=== PATIENT | male | born 1950 | race Caucasian/White ===

== ENCOUNTER 2021-03-23 05:45 | Observation (INO) | payer OTHER ==
--- NOTE | 2021-03-17 11:45 | RAD REPORT ---
EXAM DESCRIPTION: Vladimir Palencia (2 Views)03/17/2021 11:38 am CLINICAL HISTORY: Preop for knee surgery COMPARISON: None FINDINGS: The lungs appear clear of acute infiltrate. The heart is normal size IMPRESSION: No acute abnormalities displayed
[2021-03-17 11:56] LABS: Absolute Lymphocytes (CBC) 1.4 K/uL (0.7-4.9); Basophils % 0.4 % (0-1.3); Hematocrit 47.5 % (39.6-49.0); Lymphocytes % 19.5 % (15.3-44.8); MPV 9.2 fL (7.6-11.3); RBC Red Blood Cell Count 5.09 M/uL (4.33-5.43)
[2021-03-17 12:02] LABS: Protime INR 0.95
[2021-03-17 12:20] LABS: Potassium 4.7 mmol/L (3.5-5.1)
[2021-03-23] MEDS ORDERED: NS 0.9% VIAL 20 ML ONE (06:30)
[2021-03-23] MEDS ORDERED: MIDAZOLAM HCL 2 MG/2 ML INJ ONE (06:31)
[2021-03-23] MEDS ORDERED: LIDOCAINE 1% MPF 5 ML VIAL ONE (06:31)
[2021-03-23] MEDS ORDERED: FENTANYL CITR 100 MCG/2 ML ONE ×2 (06:31→08:34)
[2021-03-23] MEDS ORDERED: BUPIVACAINE 0.25% PF 30 ML VIAL ONE (06:32)
[2021-03-23] MEDS ORDERED: Ringers Lactate 0 ML IV ONE (06:35)
[2021-03-23] MEDS ORDERED: Ringers Lactate 1,000 ML IV ONE ×2 (06:36→08:58)
[2021-03-23] MEDS ORDERED: CEFAZOLIN 2 GM IN 0.9% NACL 2 GM/100 ML BAG ONE (06:42)
[2021-03-23] MEDS ORDERED: GABAPENTIN 100 MG CAP ONE (07:03)
[2021-03-23] MEDS ORDERED: CELECOXIB 100 MG CAPSULE ONE (07:03)
[2021-03-23] MEDS ORDERED: Oxycodone HCl/Acetaminophen 1 TAB TAB ONE (07:04)
[2021-03-23] MEDS ORDERED: ACETAMINOPHEN 500 MG TAB ONE (07:04)
[2021-03-23] MEDS ORDERED: propofoL 200 MG/20 ML VIAL IV ONE (07:58)
[2021-03-23] MEDS ORDERED: LIDOCAINE 2% MPF 5 ML VIAL ONE (07:58)
[2021-03-23] MEDS ORDERED: TRANEXAMIC ACID 1,000 MG in NA CHLORIDE 0.9% 50 ML IV ONE (08:00)
[2021-03-23] MEDS: BUPIVACAINE 0.25% PF 30 ML VIAL ONE ×2 (08:07→10:05)
[2021-03-23] MEDS ORDERED: EPHEDRINE SULF 50 MG/ML VIAL ONE (08:17)
[2021-03-23] MEDS ORDERED: GLYCOPYRROLATE 0.2 MG/ML SYR ONE ×2 (08:38→08:40)
[2021-03-23] MEDS ORDERED: KETAMINE HCL 500 MG/5 ML VIAL ONE (08:44)
[2021-03-23] MEDS ORDERED: KETOROLAC 30 MG/ML INJ ONE (10:17)
[2021-03-23] MEDS ORDERED: DOCUSATE NA 100 MG CAP PO PRN (10:53)
[2021-03-23] MEDS ORDERED: ONDANSETRON 4 MG/2 ML VIAL IV PRN (10:53)
[2021-03-23] MEDS ORDERED: MORPHINE 2 MG/ML SYR IV PRN (10:53)
--- NOTE | 2021-03-23 10:53 | P.BOP ---
Preoperative diagnosis: right knee osteoarthritis Postoperative diagnosis: same Primary procedure: right total knee arthroplasty Clark Driver: NONE,NONE Estimated blood loss: 30 cc Specimen: right knee bone remnants Findings: see dictation Anesthesia: General Complications: None Drain(s): Urinary catheter (removed at end of case) Implants: Biomet Cesar Persona 11 CR femur, H tibia, 35 patella, 10 MC poly Fluids & blood products: per anesthesia record; TT: 102 mins @ 300 mmHg Transferred to: Recovery Room Condition: Good
[2021-03-23] MEDS ORDERED: TRAMADOL HCL 50 MG TAB PO PRN (10:58)
--- NOTE | 2021-03-23 11:42 | RAD REPORT ---
EXAM DESCRIPTION: RAD - Knee Right 2 View - 03/23/2021 11:28 am CLINICAL HISTORY: Post Op COMPARISON: Knee Right 2 View dated 09/09/2020 FINDINGS: Status post right total knee arthroplasty. No evidence immediate hardware complications. E xpected gas within the joint. No acute fractures. IMPRESSION: Status post right total knee arthroplasty without evidence of immediate hardware complic ations. No acute fracture.
[2021-03-23 15:07] VITALS: O2SAT 93; BMI 29.8
[2021-03-23] MEDS: CEFAZOLIN 2 GM in NA CHLORIDE 0.9% 100 ML IVPB SCH (17:32)
[2021-03-23] MEDS: carvediloL 12.5 MG TAB PO SCH (20:43)
[2021-03-23] MEDS ORDERED: ATORVASTATIN 10 MG TAB PO SCH (21:00)
[2021-03-23] MEDS ORDERED: FENOFIBRATE 160 MG TAB PO SCH (21:00)
--- NOTE | 2021-03-23 21:03 | P.OP ---
Preoperative diagnosis: right knee osteoarthritis Postoperative diagnosis: same Primary procedure: right total knee arthroplasty Anesthesia: general LMA Estimated blood loss: 30 cc Specimen: right knee bone remnants Findings: see dictation Operative Technique: Indication For Procedure: Carlyle is a 70 year-old male presenting to my clinic with signs, symptoms and x-ray findings consistent with a severe right knee osteoarthritis. I discussed with the patient at length risks and benefits associated with operative and nonoperative treatment. He had failed conservative treatment measures and had significant difficulties with ADLs secondary to his pain. We discussed operative treatment and elected to proceed with right total knee arthroplasty. He expressed understanding and elected to proceed with operative treatment. Description Of Procedure: After informed consent was obtained, the patient was identified in the preoperative holding area. The right lower extremity was marked. The patient was then taken to the PACU where he underwent a right lower extremity adductor canal block performed by Anesthesia. He was then taken to the operating room, transferred to the operating table in supine fashion, and placed under general anesthesia. His right lower extremity was then prepped and draped in usual sterile fashion. A time-out was initiated. The correct patient and procedure were confirmed and identified. The patient did receive his preoperative prophylactic antibiotics. The right lower extremity was then exsanguinated and tourniquet was inflated to 300 mmHg. Approximately 15 cm longitudinal incision was made centered over the anterior aspect of the right knee. Dissection was then taken to the extensor mechanism and a medial parapatellar arthrotomy was performed. The patella was everted and dislocated laterally and the knee was flexed in the fat pad. Medial lateral meniscus and ACL were all excised exposing the distal femur. Excess hypertrophic synovium was also excised within the suprapatellar pouch. The patient had an MRI of his right knee preoperatively for surgical planning and creation of cutting blocks. The cutting block was then placed over the distal femur and pins were then placed. The distal femoral cutting block was then placed over the pins. Knee joint was then used to ensure proper depth cut and the distal femur was then cut. The chamfer cutting guide was then placed over the distal end of the femur. Anterior, posterior cuts as well as anterior and posterior chamfer cuts were then made again confirming proper depth of the cut using an Tai wing. Excess bone remnants were then sent to pathology for further evaluation. Next, attention was taken to the proximal tibia. A tibial jig and tibial cutting block was then placed on proximal aspect of the right tibia and locked into position. Pins were then placed and alignment guide was then used to confirm proper alignment of the cut and then coronal and sagittal planes. Once this was confirmed, the cutting jig was placed over the pins and the proximal tibia was cut. Sizing trays were then selected and size 10 mm spacer was used and there was good overall balance in flexion and extension. Next, the trial implants were then placed using the size 11 standard CR femur and a size H tibia with an 10 mm poly. There was overall good range of motion and good stability trial implants were then removed. The wound was then irrigated thoroughly with normal saline and the knee was then injected with 30 cc of 0.25% Marcaine both in the posterior capsule and medial and lateral gutters as well as quadriceps tendon and periosteum. The tibia was then punched. The femur was drilled. The cement was then prepared on the back table. Cement was then placed first on the tibial surface followed by size H tibia. Excess cement was removed with [place] elevators. Size 11 standard CR femur was then placed on the distal femur after cement was placed on the distal femur. Excess cement was then removed and a size 10 mm trial poly was then placed. The knee was held in extension as the cement hardened. Undersurface of the patella was prepared debriding osteophytes using rongeurs as well as osteophytes had been debrided off the proximal tibia with rongeurs and osteotomes to aid with the medial tightness. Cement was placed on the undersurface of the patella after it was cut and a size 35 patella was placed. Once the cement was hardened, the knee was ranged, there was good overall stability both in flexion, extension and as well as stability with varus and valgus stresses. Trial poly was then removed and a size 10 mm MC poly was then placed and locked into position. The knee was then ranged again. There was good overall range of motion both for flexion and extension with good stability. The wound was then irrigated again thoroughly with normal saline using pulse lavage. Tourniquet was let down. Hemostasis was achieved using B ovie electrocautery. Extensor mechanism was then approximated using a #1 Vicryl bothin interrupted and running fashion. The fascia was then approximated using 0 Vicryl. Subcutaneous tissue was approximated with a 2-0 Vicryl. Skin was approximated using eusebia. Sterile dressings were applied. The patient was awakened and transferred back in stable condition Complications: None Drain(s): Urinary catheter (removed at end of case) Implants: Bi[employer] Cesar Persona 11 CR femur, H tibia, 10 MC poly, 35 patella Fluids & blood products: per anesthesia record; TT: 102 mins @ 300 mmHg Transferred to: Recovery Room Condition: Good
[2021-03-23] MEDS: HYDROCODONE/APAP 7.5/325 MG TAB PO PRN (22:11)
[2021-03-24] MEDS: CEFAZOLIN 2 GM in NA CHLORIDE 0.9% 100 ML IVPB SCH ×2 (00:36→08:58)
[2021-03-24] MEDS ORDERED: ENOXAPARIN 30 MG/0.3 ML SQ SCH (06:00)
[2021-03-24 06:15] LABS: Absolute Lymphocytes (CBC) 0.8 K/uL (0.7-4.9); Basophils % 0.1 % (0-1.3); Hematocrit 38.1 % (39.6-49.0); Lymphocytes % 4.7 % (15.3-44.8); MPV 9.6 fL (7.6-11.3); RBC Red Blood Cell Count 4.07 M/uL (4.33-5.43)
[2021-03-24 06:40] LABS: Potassium 4.4 mmol/L (3.5-5.1)
[2021-03-24 08:10] LABS: Blood Morphology Comment NOT SEEN (NOT SEEN); Platelet Estimate ADEQ
[2021-03-24] MEDS: carvediloL 12.5 MG TAB PO SCH (08:58)
[2021-03-24] MEDS ORDERED: CELECOXIB 100 MG CAPSULE PO SCH (09:00)
[2021-03-24] MEDS ORDERED: VALSARTAN 160 MG TAB PO SCH (09:00)
[2021-03-24] MEDS ORDERED: allopurinoL 300 MG TAB PO SCH (09:00)
[2021-03-24 09:37] VITALS: TEMP 98.5
[2021-03-24] MEDS: HYDROCODONE/APAP 7.5/325 MG TAB PO PRN (10:45)
--- NOTE | 2021-03-24 11:34 | P.DS ---
Admission Date: 03/23/21 Discharge Date: 03/24/21 Disposition: DC HOME/HOME HEALTH CARE Discharge Condition: GOOD Reason for Admission: R TKA Consultations: none Procedures: R TKA on 03/23/2021 Brief History of Present Illness: Carlyle is a 70-year-old male who underwent right total knee arthroplasty on March 23, 2021. He underwent the procedure without complication and was admitted to the floor for pain control and physical therapy. Hospital Course: Carlyle is a 70-year-old male who underwent right total knee arthroplasty on March 23, 2021. He underwent the procedure without complication and was admitted to the floor for pain control and physical therapy. He mobilized well with physical therapy and was discharged on March 24 in stable condition. He will begin Xarelto on March 25 for DVT prophylaxis. He will follow up in 2 weeks for wound check and staple removal. Vital Signs/Physical Exam: Temp Pulse Resp BP Pulse Ox 98.5 F 89 18 121/66 94 03/24/21 08:00 03/24/21 08:58 03/24/21 10:45 03/24/21 08:58 03/24/21 10:45 Laboratory Data at Discharge: WBC 17.70 K/uL (4.3-10.9) H D 03/24/21 05:48 Hgb 13.1 g/dL (13.6-17.9) L 03/24/21 05:48 Hct 38.1 % (39.6-49.0) L 03/24/21 05:48 Plt Count 145 K/uL (152-406) L 03/24/21 05:48 PT 10.9 SECONDS (9.5-12.5) 03/17/21 11:28 INR 0.95 03/17/21 11:28 APTT 30.0 SECONDS (24.3-36.9) 03/17/21 11:28 Sodium 141 mmol/L (136-145) 03/24/21 05:48 Potassium 4.4 mmol/L (3.5-5.1) 03/24/21 05:48 BUN 23 mg/dL (7-18) H 03/24/21 05:48 Creatinine 1.26 mg/dL (0.55-1.3) 03/24/21 05:48 Glucose 133 mg/dL (74-106) H 03/24/21 05:48 Home Medications: Allopurinol 300 mg PO DAILY 03/17/21 Atorvastatin Calcium [Lipitor] 10 mg PO BEDTIME 03/17/21 Carvedilol [Coreg] 12.5 mg PO BID 03/17/21 Fenofibrate [Tricor] 160 mg PO BEDTIME 03/17/21 Valsartan [Diovan] 160 mg PO DAILY 03/17/21 Physician Discharge Instructions: Keep dressing c/d/i; begin Xarelto on 03/25/2021 in the AM Diet: Regular Activity: Weight bearing as tolerated Followup: Anders Otero MD [ACTIVE - CAN ADMIT] - 1-2 Weeks
[2021-03-24 17:03] VITALS: BP 107/64
== END 2021-03-24 13:55 | disposition home health service (06) ==
LOC: OR 05:45 → 2ND 14:02
PROVIDERS: ADMIT Orthopaedic Surgery Sports Medicine; ATTEND Orthopaedic Surgery Sports Medicine
PROC: 0SRC069 Replacement of Right Knee Joint with Oxidized Zirconium on Polyethylene Synthetic Substitute, Cemented, Open Approach (ICD-10-PCS; principal; 2021-03-23 07:30)
DX: M17.11 Unilateral primary osteoarthritis, right knee (principal); I10 Essential (primary) hypertension; M10.9 Gout, unspecified; E78.00 Pure hypercholesterolemia, unspecified; Z20.822 Contact with and (suspected) exposure to COVID-19
CPT/HCPCS: 27447; 85025 ×2; 80048 ×2; 36415 ×2; 85610; 88304; 88311; 85730; 85018; 85014; 71046; 73560; 97116 ×2; 97139; 97161; 97530; 94010; U0003; J2704; J1650; J2250; J3010 ×2; J0690 ×2; J7120 ×2; J2405; G0379; G0378 ×2

== ENCOUNTER 2023-07-22 11:22 | Inpatient (IN) | payer OTHER ==
[2023-07-22] MEDS ORDERED: NA CHLORIDE 0.9% 1,000 ML ONE ×3 (11:47→18:42)
[2023-07-22 12:03] LABS: Absolute Lymphocytes (CBC) 0.5 K/uL (0.7-4.9); Hematocrit 36.8 % (39.6-49.0); MCV 95.2 fL (80-100); MPV 9.5 fL (7.6-11.3); Platelets 122 thou/uL (152-406); RBC Red Blood Cell Count 3.87 M/uL (4.33-5.43)
[2023-07-22] MEDS ORDERED: ALBUMIN HUMAN 25% 50 ML IV ONE (12:11)
[2023-07-22] MEDS ORDERED: MIDODRINE HCL 5 MG TABLET ONE (12:11)
--- NOTE | 2023-07-22 12:22 | RAD REPORT ---
EXAM DESCRIPTION: RAD - Chest Single View - 07/22/2023 12:01 pm CLINICAL HISTORY: hypotension;Chest pain COMPARISON: Chest Pa And Lat (2 Views) dated 10/30/2022; Chest Pa And Lat (2 Views) dated 03/17/2021 FINDINGS: Lines: None. Lungs: Linear opacity at the right lung base which is new from prior. Pleural: No significant pleural effusions or pneumothorax. Cardiac: The heart size is within normal limits. Mediastinum: Within normal limits. Bones: No acute fractures. Other: None IMPRESSION: New linear opacity at the right lung base could be secondary to atelectasis, scarring, a nd/or an acute airspace process. The left lung is clear.
[2023-07-22 12:29] LABS: Albumin 2.6 g/dL (3.4-5.0); Bilirubin Direct 0.8 mg/dL (0-0.2); Bilirubin Indirect, Calculated 0.5 mg/dL (0.2-0.8); Bilirubin Total 1.3 mg/dL (0.2-1.0); Magnesium 2.5 mg/dL (1.6-2.4); Potassium 3.5 mEq/L (3.5-5.1); Protein, Total 6.1 g/dL (6.4-8.2); Troponin High Sensitivity 7.6 pg/mL (<58.9)
[2023-07-22 12:33] LABS: SARS-CoV-2 Antigen Rapid Res Negative (Negative)
[2023-07-22] MEDS ORDERED: ONDANSETRON 4 MG/2 ML VIAL ONE (13:43)
--- NOTE | 2023-07-22 14:17 | RAD REPORT ---
EXAM DESCRIPTION: CTChest Abd Pelvis Wo Con - 07/22/2023 1:17 pm CLINICAL HISTORY: elevated LFTs, BERNIE, hypotension COMPARISON: Abdomen Pelvis W Contrast dated 09/26/2022 TECHNIQUE: CT of the chest, abdomen, and pelvis was performed. All CT scans are performed using dose optimization technique as appropriate and may include automated exposure control or mA/KV adjustment according to patient size. FINDINGS: Thorax: Chest Wall: No abnormal mass Lungs: Scarring or subsegmental atelectasis in the lungs . Pleura: No effusions or pneumothorax. Rosa/Mediastinum: No lymphadenopathy. Aorta/Pulmonary Arteries: Unremarkable Heart: Normal size. Coronary artery calcifications. Abdomen/Pelvis: Liver: Hepatic steatosis. The knee is attenuation of the liver possibly due to multiple underlying li donnie lesions. . Biliary: No biliary ductal dilatation. Stomach: No significant focal abnormality. Duodenum: No significant focal abnormality. Pancreas: No significant abnormality. Spleen: Mild splenomegaly. Adrenal: No suspicious lesions. Kidney/ureter: No hydronephrosis. No renal calculi. Retroperitoneum: Low-density collection at the right internal iliac chain measuring 2.5 cm may be fro m prior prostatectomy and lymph node dissection. Vascular: No aneurysm. Bowel: No significant focal abnormality. Peritoneum: No ascites or free air. Bladder: Grossly unremarkable. Reproductive: No adnexal masses. Bones: No acute fracture. Multilevel degenerative changes are present in the spine. Other: n/a IMPRESSION: 1. Interval development of heterogeneous attenuation of the liver likely due to numerous underlying liver metastatic lesions. Could consider repeat CT with IV contrast or hepatic protocol M RI. 2. Interval prostatectomy. Small fluid collection along the right iliac chain may be from a lymph nod e dissection.
--- NOTE | 2023-07-22 15:35 | EDPHYS ---
Physician Documentation [facility] Name: Carlyle Viveros Age: 72 yrs Sex: Male : 1950 Arrival Date: 07/22/2023 Time: 11:22 Bed [id number] Private MD: ED Physician Wesley Cary HPI: 07/22 12:09 This 72 yrs old Male presents to ER via Ambulatory with complaints of weakness, fatigue.sb4 12:11 patient states that he has been feeling poorly for about 2 weeks, has had varying sb4 symptoms- nausea, vomiting, diarrhea, decreased appetite, fatigue. he states that it has gotten to the point where he gets exhausted walking 20 feet. denies any URI symptoms, no fever, no dark stools. Historical: - Allergies: 11: No Known Allergies; aa5 - PMHx: 11:29 Hypertensive disorder; Hypercholesterolemia; aa5 14:58 Prostate cancer; mb9 - PSHx: 14:58 prostatectomy; mb9 - Immunization history:: Adult Immunizations unknown. - Social history:: Smoking status: Patient denies any tobacco usage or history of. ROS: 12:11 Eyes: Negative for injury, pain, redness, and discharge, sb4 12:11 Constitutional: Positive for fatigue, malaise, 12:11 All other systems are negative, Exam: 12:11 Head/Face: Normocephalic, atraumatic. Eyes: Extra-ocular motions intact. Periorbital sb4 areas with no swelling, redness, or edema. ENT: Mucous membranes moist. Cardiovascular: Regular rate and rhythm with a normal S1 and S2. Respiratory: Lungs have equal breath sounds bilaterally, clear to auscultation and percussion. No rales, rhonchi or wheezes noted. No increased work of breathing, no retractions or nasal flaring. Abdomen/GI: Soft, non-tender, no distension. MS/ Extremity: Pulses equal, no cyanosis. Neurovascular intact. Full, normal range of motion. Neuro: Awake and alert, GCS 15, oriented to person, place, time, and situation. Motor strength 5/5 in all extremities. Sensory grossly intact. 12:11 Constitutional: The patient appears in no acute distress, alert, awake, 12:11 Skin: Appearance: Color: pale, Vital Signs: :29 BP 82 / 59; Pulse 82; Resp 18 S; Temp 97.9(O); Pulse Ox 97% on R/A; Weight 99.79 kg aa5 (R); Height 6 ft. 1 in. (R); 11:35 BP 83 / 52; aa5 11:50 BP 75 / 62; Pulse 71; Resp 15; Pulse Ox 100% on R/A; mb9 12:05 BP 83 / 49; Pulse 69; Resp 18; Pulse Ox 97% ; mb9 12:25 BP 91 / 57; Pulse 71; Resp 14; Pulse Ox 95% on R/A; mb9 12:40 BP 91 / 53; Pulse 73; Resp 16; Pulse Ox 95% on R/A; mb9 13:00 BP 86 / 51; Pulse 71; Resp 16; Pulse Ox 100% on R/A; mb9 13:25 BP 86 / 56; Pulse 72; Resp 14 S; Pulse Ox 95% on R/A; as6 13:47 BP 94 / 56; Pulse 73; Resp 18; Pulse Ox 96% on R/A; mb9 14:18 BP 86 / 52; Pulse 69; Resp 18; Pulse Ox 95% on R/A; mb9 14:33 BP 87 / 57; Pulse 72; Resp 18; Pulse Ox 95% on R/A; mb9 15:04 BP 84 / 50; Pulse 69; Resp 16; Pulse Ox 95% ; mb9 15:52 BP 97 / 56; Pulse 70; Resp 16; Pulse Ox 95% on R/A; mb9 16:18 BP 101 / 63; Pulse 82; Resp 16; Pulse Ox 95% on R/A; mb9 18:00 BP 96 / 61; Pulse 80; Resp 18; Pulse Ox 96% ; mb9 19:15 BP 91 / 57; Pulse 69; Resp 18; Pulse Ox 95% ; la4 20:00 BP 92 / 56; Pulse 67; Resp 18; Pulse Ox 95% on R/A; la4 11:29 Body Mass Index 29.03 (99.79 kg, 185.42 cm) aa5 19:15 MAP 68 la4 20:00 MAP 68 la4 Johnson Coma Score: 20:00 Eye Response: spontaneous(4). Motor Response: obeys commands(6). Verbal Response: la4 oriented(5). Total: 15. MDM: 11:35 Patient medically screened. sb4 15:35 Data reviewed: vital signs, nurses notes, lab test result(s), EKG, radiologic studies, sb4 I have discussed the patient's presentation/case with the attending Emergency Department Physician; and as a result, I will admit patient. Consideration of Admission/Observation Patient was admitted/placed on observation. Historians other than the Patient: Spouse/Significant Other: . Care significantly affected by the following chronic conditions: Hypertension, Cancer. Counseling: I had a detailed discussion with the patient and/or guardian regarding the historical points, exam findings, and any diagnostic results supporting the discharge/admit diagnosis, lab results, radiology results, the need for further work-up and treatment in the hospital. 07/22 11:43 Order name: Basic Metabolic Panel; Complete Time: 12:41 sb4 07/22 11:43 Order name: CBC with Diff; Complete Time: 12:13 sb4 07/22 11:43 Order name: LFT's; Complete Time: 12:41 sb4 07/22 11:43 Order name: Magnesium; Complete Time: 12:41 sb4 07/22 11:43 Order name: NT PRO-BNP; Complete Time: 12:41 sb4 07/22 11:43 Order name: Troponin HS; Complete Time: 12:41 sb4 07/22 11:43 Order name: SARS RAPID; Complete Time: 12:41 sb4 07/22 11:43 Order name: Flu; Complete Time: 12:41 sb4 07/22 17:35 Order name: CBC with Automated Diff [facility] 07/22 17:35 Order name: CBC with Automated Diff [facility] 07/22 17:35 Order name: Comprehensive Metabolic Panel [facility] 07/22 17:35 Order name: Comprehensive Metabolic Panel [facility] 07/22 11:43 Order name: XRAY Chest (1 view); Complete Time: 12:24 sb4 07/22 12:42 Order name: CT Chest Abdomen Pelvis W/O Contrast; Complete Time: 14:21 sb4 07/22 11:43 Order name: EKG; Complete Time: 11:43 sb07/22 17:35 Order name: CONS Physician Consult [facility] 07/22 11:43 Order name: Cardiac monitoring; Complete Time: 12:01 sb4 07/22 11:43 Order name: EKG - Nurse/Tech; Complete Time: 12:02 sb4 07/22 11:43 Order name: IV Saline Lock; Complete Time: 12:02 sb4 07/22 11:43 Order name: Labs collected and sent; Complete Time: 12: sb4 07/22 11:43 Order name: O2 Per Protocol; Complete Time: 12: sb4 07/22 11:43 Order name: O2 Sat Monitoring; Complete Time: 12: sb4 EC:48 Rate is 78 beats/min. Rhythm is regular, Normal Sinus Rhythm. WI interval is normal at sb4 152 msec. QRS interval is normal at 90 msec. QT interval is normal at 406 msec. No Q waves. T waves are Normal. No ST changes noted. Clinical impression: Normal ECG. Interpreted by me. Reviewed by me. Administered Medications: 12:02 Drug: NS 0.9% IV 1000 ml IV at 1 bolus Per protocol; 1000 mL bolus Route: IV; Rate: 1 mb9 bolus; Site: right forearm; 16:59 Follow up: Response: No adverse reaction; IV Status: Completed infusion mb9 12:17 Drug: Albumin IVPB 25 grams 100 ml IVPB once; (Note: Albumin 25% concentration) Volume: mb9 100 ml; Route: IVPB; Site: right forearm; 16:59 Follow up: Response: No adverse reaction; IV Status: Completed infusion mb9 12:17 Drug: midodrine 10 mg PO once Route: PO; mb9 13:48 Follow up: Response: No adverse reaction mb9 13:46 Drug: Ondansetron IVP 4 mg IVP once; over 2 minutes Route: IVP; Site: left antecubital; as6 14:51 Follow up: Response: No adverse reaction mb9 14:58 Drug: NS 0.9% IV 1000 ml IV at 1 bolus Per protocol; 1000 mL bolus Route: IV; Rate: 1 mb9 bolus; Site: right forearm; 16:59 Follow up: Response: No adverse reaction; IV Status: Completed infusion mb9 Disposition: 07/23 09:53 Co-signature as Attending Physician, Wesley Cary MD I reviewed the patient's care rt provided by the Advanced Practice Provider and agree with the diagnosis and treatment plan. Disposition Summary: 07/22/23 15:34 Hospitalization Ordered Notes: Hospitalization Status: Inpatient Admission sb4 Provider: Reid, Mohammad sb4 Location: Telemetry/[facility] (Inpatient) sb4 Condition: Fair sb4 Problem: new sb4 Symptoms: are unchanged sb4 Bed/Room Type: Standard sb4 Room Assignment: [facility](07/22/23 17:56) eb Diagnosis - Hypotension, unspecified sb4 - Acute kidney failure, unspecified sb4 Forms: - Medication Reconciliation Form sb4 - SBAR form sb4 - Leadership Thank You Letter sb4 Signatures: Dispatcher [employer] EDEvelyn Louie RN RN aa5 Laury Arrington Ashby RN RN as6 Katia Israel PACody PACody sb4 Ivette Holley RN RN mb9 Wesley Cary MD MD rt Corrections: (The following items were deleted from the chart) 07/22 11:37 11:29 PMHx: Hypertensive disorder; aa5 aa5 17:56 15:34 sb4 eb
--- NOTE | 2023-07-22 15:35 | ER ---
Nurse's Notes [facility] Name: Carlyle Viveros Age: 72 yrs Sex: Male : 1950 Arrival Date: 07/22/2023 Time: : Bed IW10 Private MD: Diagnosis: Hypotension, unspecified;Acute kidney failure, unspecified Presentation: 07/22 11:29 Chief complaint: Pt's states "he just hasn't been feeling well for a couple of aa5 weeks, he's had a slight cough, indigestion, and he threw up on Sunday". Pt c/o malaise and decreased appetite. Pt's skin appears pale. 11:29 Onset of symptoms was June 2023. aa5 11: Acuity: NIMCO 2 aa5 : Method Of Arrival: Ambulatory aa5 : Coronavirus screen: fatigue. Ebola Screen: Patient denies travel to an Ebola-affected [facility] area in the 21 days before illness onset. Initial Sepsis Screen: Does the patient meet any 2 criteria? Systolic BP < 90 mmHg. Does the patient have a suspected source of infection? No. Patient's initial sepsis screen is negative. Risk Assessment: Do you want to hurt yourself or someone else? Patient reports no desire to harm self or others. Historical: - Allergies: 11: No Known Allergies; aa5 - PMHx: 11:29 Hypertensive disorder; Hypercholesterolemia; aa5 14:58 Prostate cancer; mb9 - PSHx: 14:58 prostatectomy; mb9 - Immunization history:: Adult Immunizations unknown. - Social history:: Smoking status: Patient denies any tobacco usage or history of. Screenin:00 [facility] ED Fall Risk Assessment (Adult) History of falling in the last 3 months, mb9 including since admission No falls in past 3 months (0 pts) Confusion or Disorientation No (0 pts) Intoxicated or Sedated No (0 pts) Impaired Gait No (0 pts) Mobility Assist Device Used No (0 pt) Altered Elimination No (0 pt) Score/Fall Risk Level 0 - 2 = Low Risk Oriented to surroundings, Maintained a safe environment, Educated pt \\T\\ family on fall prevention, incl call for assistance when getting out of bed. Abuse screen: Denies threats or abuse. Nutritional screening: No deficits noted. Tuberculosis screening: No symptoms or risk factors identified. Assessment: 12:00 General: Appears ill, Behavior is cooperative. Pain: Denies pain. Neuro: [place] mb9 Agitation-Sedation Scale (RASS): 0 - Alert and Calm Level of Consciousness is awake, alert, obeys commands, Oriented to person, place, time, situation, Appropriate for age Reports dizziness. Cardiovascular: Heart tones S1 S2 present Patient's skin is warm and dry. Respiratory: Reports cough that is Airway is patent Respiratory effort is even, unlabored, Respiratory pattern is regular, symmetrical, Breath sounds are clear bilaterally. GI: Abdomen is round non-distended, Bowel sounds present X 4 quads. Abd is soft and non tender X 4 quads. : No signs and/or symptoms were reported regarding the genitourinary system. EENT: No signs and/or symptoms were reported regarding the EENT system. Derm: Skin is pink, warm \\T\\ dry. Musculoskeletal: Range of motion: intact in all extremities. 13:00 Reassessment: No changes from previously documented assessment. Patient and/or family mb9 updated on plan of care and expected duration. Pain level reassessed. Patient is alert, oriented x 3, equal unlabored respirations, skin warm/dry/pink. 14:00 Reassessment: No changes from previously documented assessment. Patient and/or family mb9 updated on plan of care and expected duration. Pain level reassessed. Patient is alert, oriented x 3, equal unlabored respirations, skin warm/dry/pink. 15:00 Reassessment: No changes from previously documented assessment. Patient and/or family mb9 updated on plan of care and expected duration. Pain level reassessed. Patient is alert, oriented x 3, equal unlabored respirations, skin warm/dry/pink. 16:00 Reassessment: No changes from previously documented assessment. Patient and/or family mb9 updated on plan of care and expected duration. Pain level reassessed. Patient is alert, oriented x 3, equal unlabored respirations, skin warm/dry/pink. 17:00 Reassessment: No changes from previously documented assessment. Patient and/or family mb9 updated on plan of care and expected duration. Pain level reassessed. Patient is alert, oriented x 3, equal unlabored respirations, skin warm/dry/pink. 18:00 Reassessment: No changes from previously documented assessment. Patient and/or family mb9 updated on plan of care and expected duration. Pain level reassessed. Patient is alert, oriented x 3, equal unlabored respirations, skin warm/dry/pink. 18:08 Reassessment: Attempted to call report to admitting nurse. Told by ERP/Dr. Reid to hold mb9 off until knowing whether icu admit or medsurg/tele admit. 18:30 Reassessment: see [facility] for further charting. mb9 Vital Signs: 11:29 BP 82 / 59; Pulse 82; Resp 18 S; Temp 97.9(O); Pulse Ox 97% on R/A; Weight 99.79 kg aa5 (R); Height 6 ft. 1 in. (R); 11:35 BP 83 / 52; aa5 11:50 BP 75 / 62; Pulse 71; Resp 15; Pulse Ox 100% on R/A; mb9 12:05 BP 83 / 49; Pulse 69; Resp 18; Pulse Ox 97% ; mb9 12:25 BP 91 / 57; Pulse 71; Resp 14; Pulse Ox 95% on R/A; mb9 12:40 BP 91 / 53; Pulse 73; Resp 16; Pulse Ox 95% on R/A; mb9 13:00 BP 86 / 51; Pulse 71; Resp 16; Pulse Ox 100% on R/A; mb9 13:25 BP 86 / 56; Pulse 72; Resp 14 S; Pulse Ox 95% on R/A; as6 13:47 BP 94 / 56; Pulse 73; Resp 18; Pulse Ox 96% on R/A; mb9 14:18 BP 86 / 52; Pulse 69; Resp 18; Pulse Ox 95% on R/A; mb9 14:33 BP 87 / 57; Pulse 72; Resp 18; Pulse Ox 95% on R/A; mb9 15:04 BP 84 / 50; Pulse 69; Resp 16; Pulse Ox 95% ; mb9 15:52 BP 97 / 56; Pulse 70; Resp 16; Pulse Ox 95% on R/A; mb9 16:18 BP 101 / 63; Pulse 82; Resp 16; Pulse Ox 95% on R/A; mb9 18:00 BP 96 / 61; Pulse 80; Resp 18; Pulse Ox 96% ; mb9 19:15 BP 91 / 57; Pulse 69; Resp 18; Pulse Ox 95% ; la4 20:00 BP 92 / 56; Pulse 67; Resp 18; Pulse Ox 95% on R/A; la4 11:29 Body Mass Index 29.03 (99.79 kg, 185.42 cm) aa5 19:15 MAP 68 la4 20:00 MAP 68 la4 [place] Coma Score: 20:00 Eye Response: spontaneous(4). Motor Response: obeys commands(6). Verbal Response: la4 oriented(5). Total: 15. ED Course: 11:23 Patient arrived in ED. rg4 11:29 Arm band placed on. aa5 11:35 Katia Israel PA-C is PHCP. sb4 11:35 Wesley Cary MD is Attending Physician. sb4 11:40 Triage completed. aa5 11:59 Ivette Holley, RN is Primary Nurse. mb9 11:59 Inserted saline lock: 18 gauge in left antecubital area, using aseptic technique. mb9 12:00 Placed in gown. Bed in low position. Call light in reach. Side rails up X 1. Client mb9 placed on continuous cardiac and pulse oximetry monitoring. NIBP monitoring applied. front desk monitor on. Door closed. Noise minimized. Warm blanket given. 12:00 Inserted saline lock: 20 gauge in right forearm, using aseptic technique. mb9 12:00 EKG done, by ED staff, reviewed by Katia Israel PA-C. mb9 12:02 Basic Metabolic Panel Sent. mb9 12:02 CBC with Diff Sent. mb9 12:02 LFT's Sent. mb9 12:02 Magnesium Sent. mb9 12:02 NT PRO-BNP Sent. mb9 12:02 Troponin HS Sent. mb9 12:02 SARS RAPID Sent. mb9 12:02 Flu Sent. mb9 12:03 XRAY Chest (1 view) In Process Unspecified. EDMS 13:18 CT Chest Abdomen Pelvis W/O Contrast In Process Unspecified. EDMS 15:34 Ines Reid MD is Hospitalizing Provider. sb4 15:52 No provider procedures requiring assistance completed. Patient admitted, IV remains in mb9 place. 20:16 Provided Education on: plan of care. la4 Administered Medications: 12:02 Drug: NS 0.9% IV 1000 ml IV at 1 bolus Per protocol; 1000 mL bolus Route: IV; Rate: 1 mb9 bolus; Site: right forearm; 16:59 Follow up: Response: No adverse reaction; IV Status: Completed infusion mb9 12:17 Drug: Albumin IVPB 25 grams 100 ml IVPB once; (Note: Albumin 25% concentration) Volume: mb9 100 ml; Route: IVPB; Site: right forearm; 16:59 Follow up: Response: No adverse reaction; IV Status: Completed infusion mb9 12:17 Drug: midodrine 10 mg PO once Route: PO; mb9 13:48 Follow up: Response: No adverse reaction mb9 13:46 Drug: Ondansetron IVP 4 mg IVP once; over 2 minutes Route: IVP; Site: left antecubital; as6 14:51 Follow up: Response: No adverse reaction mb9 14:58 Drug: NS 0.9% IV 1000 ml IV at 1 bolus Per protocol; 1000 mL bolus Route: IV; Rate: 1 mb9 bolus; Site: right forearm; 16:59 Follow up: Response: No adverse reaction; IV Status: Completed infusion mb9 Medication: 12:01 VIS not applicable for this client. mb9 Outcome: 15:34 Decision to Hospitalize by Provider. sb4 20:15 Admitted to Med/surg accompanied by tech, room 212, with chart, Report called to Barber khan RN 20:15 Condition: stable 20:15 Instructed on the need for admit, Demonstrated understanding of instructions, need for admission 20:59 Patient left the ED. erin Signatures: Dispatcher [employer] EDWV Evelyn Duque RN Elisabet Haro rg4 Juwan Balderas RN RN as6 Katia Israel, PA-C PA-C Ivette Galan RN RN mb9 Yuliya Vazquez RN RN la4 Corrections: (The following items were deleted from the chart) 11:37 11:29 PMHx: Hypertensive disorder; aa5 aa5 12:25 11:59 BP 75 / 62; Pulse 71bpm; Resp 15bpm; Pulse Ox 100% RA; mb9 mb9 12:25 12:17 BP 83 / 49; Pulse 69bpm; Resp 18bpm; Pulse Ox 97%; mb9 mb9
[2023-07-22] MEDS ORDERED: ACETAMINOPHEN 500 MG TAB PO PRN (17:31)
[2023-07-22] MEDS ORDERED: MORPHINE 2 MG/ML SYR IV PRN (17:31)
--- NOTE | 2023-07-22 17:33 | P.HP ---
Certification for Inpatient Patient admitted to: Inpatient With expected LOS: >2 Midnights Patient will require the following post-hospital care: None Practitioner: I am a practitioner with admitting privileges, knowledge of patient current condition, hospital course, and medical plan of care. Services: Services provided to patient in accordance with Admission requirements found in Title 42 Section 412.3 of the Code of Federal Regulations Patient History Date of Service: 07/22/23 Reason for admission: Diminished appetite; intractable nausea vomiting; acute kidney injury History of Present Illness: Patient is a 72-year-old gentleman who came to the hospital with anorexia and generalized weakness. Patient been having some nausea and vomiting and patient came to the emergency room for further evaluation. 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 Patient was hypotensive and patient was given IV fluids in the emergency room. Patient's blood pressure improved. Patient is he will pass this. Patient's creatinine is elevated. Once creatinine improves we can do contrast study. Patient will be admitted to the hospital for further workup. Allergies No Known Allergies Allergy (Verified 03/17/21 11:11) Home Medications: Allopurinol 200 mg PO DAILY 03/17/21 Atorvastatin Calcium [Lipitor*] 10 mg PO BEDTIME 03/17/21 Carvedilol [Coreg] 12.5 mg PO BID 03/17/21 Valsartan [Diovan*] 160 mg PO DAILY 03/17/21 Hydrocodone 7.5/APAP 325 [[place] 7.5/325 mg*] 1 tab PO Q4H PRN tab 03/24/21 Sildenafil Citrate 20 mg PO DAILY 07/23/23 - Past Medical/Surgical History Diabetic: No -: Hypertension -: gout -: Dyslipidemia -: Osteoarthritis -: Prostate cancer -: left ankle surgery -: back surgery x 2 - Family History Father Family History: Reviewed- Non-Contributory - Social History Smoking Status: Former smoker Alcohol use: Yes CD- Drugs: No Caffeine use: Yes Review of Systems 10-point ROS is otherwise unremarkable Physical Examination - Vital Signs Temperature: 98 F (vitals reviewed) - Physical Exam General: Alert, In no apparent distress, Oriented x3 HEENT: Atraumatic, PERRLA, Mucous membr. moist/pink, EOMI, Sclerae nonicteric Neck: Supple, 2+ carotid pulse no bruit, No LAD, Without JVD or thyroid abnormality Respiratory: Clear to auscultation bilaterally, Normal air movement Cardiovascular: Regular rate/rhythm, Normal S1 S2, No murmurs Gastrointestinal: Normal bowel sounds, Soft and benign, Non-distended, No tenderness Musculoskeletal: No tenderness Integumentary: No rashes Neurological: Normal gait, Normal speech, Normal tone, Sensation intact, Cranial nerves 3-12 intact, Normal affect, Abnormal strength Lymphatics: No axilla or inguinal lymphadenopathy - Studies Laboratory Data (last 24 hrs) 07/22/23 07/22/23 11:54 11:54 WBC 6.60 Hgb 12.8 L Hct 36.8 L Plt Count 122 L Sodium 137 Potassium 3.5 BUN 27 H Creatinine 2.91 H Glucose 112 H Magnesium 2.5 H Total Bilirubin 1.3 H AST 142 H ALT 113 H Alkaline Phosphatase 347 H Microbiology Data (last 24 hrs): 07/22/23 11:54 Nasopharnyx Influenza Type A Antigen Screen - Final 07/22/23 11:54 Nasopharnyx Influenza Type B Antigen Screen - Final Assessment & Plan - Problems (Diagnosis) (1) Acute kidney injury Current Visit: Yes Status: Acute (2) Prostate cancer Current Visit: Yes Status: Acute (3) HTN (hypertension) Current Visit: Yes Status: Acute (4) Liver lesion Current Visit: Yes Status: Acute (5) History of gout Current Visit: Yes Status: Acute (6) History of hyperlipidemia Current Visit: Yes Status: Acute - Plan 1. Continue with IVFs 2. Monitor renal function 3. Repeat CT imaging 4. Check PSA 5. Check AFB 6. Renal US 7. Monitor hemodynamics 8. Echocardiogram 9. GI/DVT prophylaxis Discharge Plan: Home Plan to discharge in: Greater than 2 days - Advance Directives Does patient have a Living Will: No Does patient have a Durable POA for Healthcare: No - Code Status/Comfort Care Code Status Assessed: Yes Code Status: Full Code Critical Care: No Time Spent Managing PTS Care (In Minutes): 45
[2023-07-22] MEDS: NA CHLORIDE 0.9% 1,000 ML IV SCH (18:00)
[2023-07-22] MEDS ORDERED: ALBUMIN HUMAN 25% 100 ML IV ONE ×2 (18:39→22:13)
[2023-07-22 18:51] VITALS: BMI 28.8
[2023-07-22] MEDS: MIDODRINE HCL 5 MG TABLET PO SCH (22:14)
[2023-07-23] MEDS: NA CHLORIDE 0.9% 1,000 ML IV SCH ×2 (04:15→15:22)
[2023-07-23] MEDS ORDERED: NA CHLORIDE 0.9% 500 ML IV ONE (05:45)
[2023-07-23 05:53] LABS: Absolute Lymphocytes (CBC) 0.5 K/uL (0.7-4.9); Hematocrit 31.7 % (39.6-49.0); Lymphocytes % 7.7 % (15.3-44.8); MCV 94.9 fL (80-100); MPV 9.6 fL (7.6-11.3); Platelets 120 thou/uL (152-406); RBC Red Blood Cell Count 3.34 M/uL (4.33-5.43)
[2023-07-23 06:13] LABS: Albumin 2.6 g/dL (3.4-5.0); Bilirubin Total 1.3 mg/dL (0.2-1.0); Magnesium 2.4 mg/dL (1.6-2.4); Phosphorus 3.7 mg/dL (2.5-4.9); Potassium 3.5 mEq/L (3.5-5.1); Protein, Total 5.5 g/dL (6.4-8.2)
[2023-07-23] MEDS: MIDODRINE HCL 5 MG TABLET PO SCH ×3 (08:01→19:29)
[2023-07-23 09:26] LABS: Hepatitis B Core IgM Nonreactive (Nonreactive); Hepatitis B surface AG Interp. Nonreactive (Nonreactive); Hepatitis C Virus Ab Nonreactive (Nonreactive)
--- NOTE | 2023-07-23 11:58 | RAD REPORT ---
EXAM DESCRIPTION: US - Renal Ultrasound-Complete - 07/23/2023 9:49 am CLINICAL HISTORY: Acute renal insufficiency COMPARISON: July 22, 2023 CT FINDINGS: The right kidney measures 11 cm with a normal echotexture. The left kidney measures 12 cm with a normal echotexture. Hydronephrosis is not seen. No gross abnormality of bladder 5 centimeter fluid collection right pelvis may represent lymphocele. Markedly heterogeneous echotexture of the liver. Spleen 15.3 centimeters IMPRESSION: Unremarkable renal ultrasound. Markedly heterogeneous echotexture of the liver probably metastatic disease. Severe inflammation prob ably less likely.
--- NOTE | 2023-07-23 13:58 | P.PN ---
Subjective Date of Service: 07/23/23 Chief Complaint: Diminished appetite; intractable nausea vomiting; acute kidney injury Pt is resting comfortably in bed. cr is 2.7. Renal ultrasound is unremarkable. CT abd is concerning for liver mets. Pt will need CT abd with iv contrast when renal function is better. No other complaints. Review of Systems Unremarkable General: Unremarkable Eyes: Unremarkable ENT: Unremarkable Respiratory: Unremarkable Cardiovascular: Unremarkable Gastrointestinal: Unremarkable Genitourinary: Unremarkable Musculoskeletal: Unremarkable Integumentary: Unremarkable Neurological: Unremarkable Lymphatics: Unremarkable Physical Examination - Vital Signs Temperature: 98 F (vitals reviewed) Blood Pressure: 97/58 Pulse: 75 Respirations: 17 Pulse Ox (%): 93 - Physical Exam General: Alert, In no apparent distress, Oriented x3 HEENT: Atraumatic, Normocephalic Neck: Supple, 2+ carotid pulse no bruit Respiratory: Clear to auscultation bilaterally, Normal air movement Cardiovascular: No edema, Normal pulses, Regular rate/rhythm, Normal S1 S2 Capillary refill: <2 Seconds Gastrointestinal: Normal bowel sounds, Soft and benign, Non-distended Musculoskeletal: No clubbing, No swelling Integumentary: No rashes, No breakdown Neurological: Normal speech, Normal strength at 5/5 x4 extr, Normal tone, Sensation intact Lymphatics: No axilla or inguinal lymphadenopathy - Studies Microbiology Data (last 24 hrs): 07/22/23 11:54 Nasopharnyx Influenza Type A Antigen Screen - Final 07/22/23 11:54 Nasopharnyx Influenza Type B Antigen Screen - Final Assessment And Plan - Plan BERNIE: cr is 2.7. renal ultrasound is unremarkable. Will avoid nephrotoxins, continue IVF and monitor renal function. Hx of prostate cancer: noted. Will check PSA. Possible mets to the liver: Per CT abd/pelvis. Pt will need CT abd with contrast or MRI abd when renal function is better. Htn: Continue home med Gout: continue home med HLD: statin DVT ppx: SCD Code: full Dispo: Pending hospital course.
[2023-07-24] MEDS: NA CHLORIDE 0.9% 1,000 ML IV SCH ×3 (00:14→12:32)
--- NOTE | 2023-07-24 01:36 | CON ---
Date of Consultation: 07/23/2023 Chief Complaint: Acute kidney injury. The patient presented to the hospital because of intractable nausea, vomiting, and diminished appetite. History Of Present Illness: The patient is a 72-year-old gentleman who came to the hospital because of generalized weakness. He was complaining of anorexia, nausea, and vomiting. ER workup was initiated and the patient was found to have acute kidney injury. He has nonoliguric urine output. The patient was hypotensive and was given IV fluids in the emergency room . The patient was anemic and hypotensive and responded to IV fluids. Blood pressure improved with IV hydration. The patient has history of gout, hypertension, and prostate cancer. He was taking allopurinol, atorvastatin, carvedilol, valsartan, hydrocodone, APAP, and sildenafil citrate. Review of Systems: General: The patient denies fever, chills. Eyes: Denies vision changes. Ears, Nose, Mouth, and Throat: Denies sore throat or earache. Respiratory: Denies PND, orthopnea. Cardiovascular: He was complaining of generalized weakness. He denied syncope. Denies chest pain, palpitation. GI: Had nausea, vomiting. Denies melena, hematemesis. : Denies dysuria, hematuria. All other systems reviewed and all negative. Past Medical History: Hypertension, gout, dyslipidemia, osteoarthritis, prostate cancer, left ankle surgery, back surgery x2. Family History: Father unknown and noncontributory. Social History: Former smoker. Alcohol, denies. Physical Examination: General: The patient is not in distress. He is alert and oriented x3, conversant. HEENT: Atraumatic, normocephalic. Anicteric sclerae. Neck: Supple. No JVD. No bruits. Cardiovascular: S1, S2. No pericardial or friction rub. Respiratory: Clear to auscultation bilaterally. Normal air movement. Normal respiratory effort. Gastrointestinal: Normal bowel sounds. Neurologic: No tremor. Cranial nerves intact. Skin: Warm and dry. Laboratory Work: WBC 6.6, hemoglobin 12.8, hematocrit 36.8, platelet count 122,000. Sodium 137, potassium 3.5, BUN 27, creatinine 2.91, glucose 112, magnesium 2.5, total bilirubin 1.3, AST 142, ALT 113, AP 347. Impression And Plan: 1. Acute kidney injury, nonoliguric. Continue IV fluids. Check renal ultrasound. Check UA, screen for proteinuria. Plan is to evaluate for possible rhabdomyolysis. 2. Prostate cancer. I recommend to consult Urology. 3. Hypertension. Hold angiotensin receptor carri. The patient developed acute kidney injury in setting of hypovolemia, hypotension, and angiotensin receptor carri, which was causing severe renal hypoperfusion and acute kidney injury. 4. History of gout. Monitor uric acid level. 5. Liver lesion. Workup per primary team. The patient needs further workup to rule out malignancy. Liver appears to have metastatic changes. 6. Hypertension. Blood pressure is controlled. Monitor blood pressure. Adjust medication. Avoid angiotensin receptor carri. 7. Acute kidney injury. Monitor urinalysis for any evidence of nephritis. PAIGE/MODBilly Voice ID: [id number] Report ID: [id number] MTDD
[2023-07-24 06:35] LABS: Absolute Lymphocytes (CBC) 0.5 K/uL (0.7-4.9); Hematocrit 30.7 % (39.6-49.0); Lymphocytes % 10.6 % (15.3-44.8); MCV 94.6 fL (80-100); MPV 9.2 fL (7.6-11.3); Platelets 123 thou/uL (152-406); RBC Red Blood Cell Count 3.24 M/uL (4.33-5.43)
[2023-07-24 07:05] LABS: Albumin 2.4 g/dL (3.4-5.0); Bilirubin Total 0.9 mg/dL (0.2-1.0); Carcinoembryonic Antigen 0.9 ng/mL (0-5.0); Magnesium 2.6 mg/dL (1.6-2.4); Potassium 3.3 mEq/L (3.5-5.1); Protein, Total 5.5 g/dL (6.4-8.2); Thyroid Stimulating Hormone 2.58 uIU/mL (0.358-3.740)
[2023-07-24] MEDS: MIDODRINE HCL 5 MG TABLET PO SCH ×3 (08:20→21:44)
--- NOTE | 2023-07-24 09:08 | ECHO ---
HEIGHT: 6 ft 1 in WEIGHT: 218 lb 0 oz DATE OF STUDY: 07/23/[address]: Ines Reid MD 2-DIMENSIONAL: YES M.MODE: YES DOPPLER: YES COLOR FLOW: YES TDS: PORTABLE: YES DEFINITY: BUBBLE STUDY: DIAGNOSIS: HYPOTENSION CARDIAC HISTORY: CATHERIZATION: SURGERY: PROSTHETIC VALVE: PACEMAKER: MEASUREMENTS (cm) DIASTOLIC (NORMALS) SYSTOLIC (NORMALS) IVSd 0.8 (0.6-1.2) LA Diam 3.4 (1.9-4.0) LVEF 72% LVIDd 5.2 (3.5-5.7) LVIDs 3.0 (2.0-3.5) %FS 41% LVPWd 0.9 (0.6-1.2) Ao Diam 3.2 (2.0-3.7) 2 DIMENSIONAL ASSESSMENT: RIGHT ATRIUM: NORMAL LEFT ATRIUM: NORMAL RIGHT VENTRICLE: NORMAL LEFT VENTRICLE: NORMAL TRICUSPID VALVE: MILD TRICUSPID REGURGITATION MITRAL VALVE: MILD MITRAL REGURGITATION PULMONIC VALVE: NORMAL AORTIC VALVE: NORMAL PERICARDIAL EFFUSION: NONE AORTIC ROOT: NORMAL LEFT VENTRICULAR WALL MOTION: NORMAL DOPPLER/COLOR FLOW: SEE BELOW COMMENTS: 1. NORMAL LEFT VENTRICULAR EJECTION FRACTION 60-65% 2. NORMAL WALL MOTION 3. NORMAL DIASTOLIC FUNCTION 4. MILD MITRAL REGURGITATION 5. MILD TRICUSPID REGURGITATION TECHNOLOGIST: GINETTE CHAN
--- NOTE | 2023-07-24 11:14 | P.PN ---
Subjective Date of Service: 07/24/23 Chief Complaint: Diminished appetite; intractable nausea vomiting; acute kidney injury Pt is resting comfortably in bed. Cr is 2.19 <- 2.7. Renal ultrasound is unremarkable. CT abd is concerning for liver mets. Pt will need CT abd with iv contrast when renal function is better. No other complaints. Review of Systems Unremarkable General: Unremarkable Eyes: Unremarkable ENT: Unremarkable Respiratory: Unremarkable Cardiovascular: Unremarkable Gastrointestinal: Unremarkable Genitourinary: Unremarkable Musculoskeletal: Unremarkable Integumentary: Unremarkable Neurological: Unremarkable Lymphatics: Unremarkable Physical Examination - Vital Signs Temperature: 97.8 F Blood Pressure: 123/65 Pulse: 73 Respirations: 18 Pulse Ox (%): 97 - Physical Exam General: Alert, In no apparent distress, Oriented x3 HEENT: Atraumatic, Normocephalic, PERRLA Neck: Supple, 2+ carotid pulse no bruit Respiratory: Clear to auscultation bilaterally, Normal air movement Cardiovascular: No edema, Normal pulses, Regular rate/rhythm, Normal S1 S2 Capillary refill: <2 Seconds Gastrointestinal: Normal bowel sounds, Soft and benign, Non-distended Musculoskeletal: No clubbing, No swelling Integumentary: No rashes, No breakdown Neurological: Normal speech, Normal strength at 5/5 x4 extr, Normal tone, Sensation intact Lymphatics: No axilla or inguinal lymphadenopathy Assessment And Plan - Plan BERNIE: Cr is 2.19 <- 2.7. renal ultrasound is unremarkable. Will avoid nephrotoxins, continue IVF and monitor renal function. Hx of prostate cancer: noted. Will check PSA. Possible mets to the liver: Per CT abd/pelvis. Pt will need CT abd with contrast or MRI abd when renal function is better. Htn: Continue home med Gout: continue home med HLD: statin DVT ppx: SCD Code: full Dispo: Pending hospital course.
[2023-07-24] MEDS: POTASSIUM CL SA 10 MEQ TAB PO SCH ×2 (11:57→15:31)
[2023-07-24] MEDS ORDERED: POTASSIUM 25 MEQ EFFERV TAB PO ONE (12:18)
--- NOTE | 2023-07-24 16:50 | PN ---
Date of Progress Note: 07/24/2023 Subjective: The patient was admitted to the hospital with acute kidney injury. The patient had prostate cancer. The acute kidney injury was secondary to ARB and prerenal obstructive uropathy has been ruled out. The patient was started on IV hydration. Kidney function has been improved. Creatinine down to 2. Physical Examination: Vital Signs: When I saw the patient, blood pressure 123/65, pulse of 73, afebrile. Chest: Clear to auscultation. Heart: S1, S2. Regular. Abdomen: Soft, nontender. Extremity: No edema. Laboratory Data: Sodium 142, potassium 3.3, bicarb 24, BUN 24, creatinine 2.1, calcium 7.9, phosphorous 3.7, magnesium 2.6. Serum protein electrophoresis is still pending. TSH 2.5, hemoglobin 10.5. Current Medications: The patient on, includes: 1. Midodrine. 2. Tylenol. 3. IV fluid. Assessment And Plan: 1. Acute kidney injury secondary to prerenal dehydration, on the recovery phase, looked to me normal volume. I am going to go ahead and decrease IV fluid to 50 per hour. Plan to continue taper and DC by tomorrow. 2. Keep holding any ARB or diuretic for the time being and we will follow up. 3. Hypertension, controlled, optimal with the presence of acute kidney injury. Holds ARB. 4. Gout, stable. 5. Questionable metastasis to the liver from prostate cancer. We will follow up with primary. Time spent examining the patient [id number] reviewing that the lab and the radiology placing orders or discussing the case with the patient discussing the case with the steam station supervisor including hospitalist and nursing staff more than 35 minutes RADHA Voice ID: [id number] Report ID: [id number] [place]
[2023-07-24] MEDS: ONDANSETRON 4 MG/2 ML VIAL IV PRN (17:53)
[2023-07-24] MEDS: FAMOTIDINE 20 MG/2 ML VIAL IV SCH (21:44)
[2023-07-25] MEDS: NA CHLORIDE 0.9% 1,000 ML IV SCH (04:55)
[2023-07-25 06:57] LABS: Absolute Lymphocytes (CBC) 0.4 K/uL (0.7-4.9); Hematocrit 29.9 % (39.6-49.0); Lymphocytes % 9.9 % (15.3-44.8); MCV 95.1 fL (80-100); MPV 9.6 fL (7.6-11.3); Platelets 120 thou/uL (152-406); RBC Red Blood Cell Count 3.14 M/uL (4.33-5.43)
[2023-07-25 07:11] LABS: Potassium 3.6 mEq/L (3.5-5.1)
[2023-07-25] MEDS: MIDODRINE HCL 5 MG TABLET PO SCH ×2 (09:32→21:22)
[2023-07-25] MEDS ORDERED: NA CHLORIDE 0.9% 1,000 ML IV SCH (10:20)
--- NOTE | 2023-07-25 10:20 | P.PN ---
Subjective Date of Service: 07/25/23 Chief Complaint: Diminished appetite; intractable nausea vomiting; acute kidney injury Pt is resting comfortably in bed. Cr is 1.89<- 2.19 <- 2.7. Renal ultrasound is unremarkable. CT abd is concerning for liver mets. Pt will need CT abd with iv contrast when renal function is better. No other complaints. Review of Systems Unremarkable General: Unremarkable Eyes: Unremarkable ENT: Unremarkable Respiratory: Unremarkable Cardiovascular: Unremarkable Gastrointestinal: Unremarkable Genitourinary: Unremarkable Musculoskeletal: Unremarkable Integumentary: Unremarkable Neurological: Unremarkable Lymphatics: Unremarkable Physical Examination - Vital Signs Temperature: 97.8 F Blood Pressure: 116/61 Pulse: 71 Respirations: 19 Pulse Ox (%): 95 - Physical Exam General: Alert, In no apparent distress, Oriented x3 HEENT: Atraumatic, Normocephalic, PERRLA Neck: Supple, 2+ carotid pulse no bruit Respiratory: Clear to auscultation bilaterally, Normal air movement Cardiovascular: No edema, Normal pulses, Regular rate/rhythm, Normal S1 S2 Capillary refill: <2 Seconds Gastrointestinal: Normal bowel sounds, Soft and benign, Non-distended Musculoskeletal: No clubbing, No swelling Integumentary: No rashes, No breakdown, No significant lesion Neurological: Normal gait, Normal speech, Normal strength at 5/5 x4 extr, Normal tone, Sensation intact Lymphatics: No axilla or inguinal lymphadenopathy Assessment And Plan - Plan BERNIE: Cr is 1.89<- 2.19 <- 2.7. renal ultrasound is unremarkable. Will avoid nephrotoxins, continue IVF and monitor renal function. Hx of prostate cancer: noted. Will check PSA. Possible mets to the liver: Per CT abd/pelvis. Pt will need CT abd with contrast or MRI abd when renal function is better. Htn: Continue home med Gout: continue home med HLD: statin DVT ppx: SCD Code: full Dispo: Pending hospital course.
[2023-07-25] MEDS ORDERED: POTASSIUM 25 MEQ EFFERV TAB PO ONE (11:00)
--- NOTE | 2023-07-25 11:27 | PN ---
Date of Progress Note: 07/25/2023 Subjective: The patient was admitted to the hospital with acute kidney injury secondary to prerenal, dehydration. The patient is feeling much better. Kidney function has been improved. Continue to trend down. The patient is feeling better, eating well. Physical Examination: Vital Signs: When I saw the patient, blood pressure 116/61, pulse of 71, afebrile. Chest: Clear to auscultation. Heart: S1, S2. Regular. Abdomen: Soft, nontender. Extremity: No edema. Neuro: Alert, no focality. Laboratory Data: Sodium 141, potassium 3.6, bicarb 26, BUN 16, creatinine 1.8, calcium of 8. Hemoglobin 10.1. Current Medications: The patient on, includes Tylenol, midodrine, Pepcid. Assessment And Plan: 1. Acute kidney injury secondary to prerenal dehydration recover, creatinine continued to trend down. The patient looked to me normal volume. I will discontinue IV fluid and we will monitor. 2. Hypertension, currently hypotension. Blood pressure maintained good. I am going to go ahead and discontinue IV fluid, decrease midodrine to twice a day and we will follow up the patient. 3. Hypokalemia. We will supplement. 4. Metastatic prostate cancer, questionable follow up with primary. Time spent examining the patient [id number] reviewing that the lab and the radiology placing orders or discussing the case with the patient discussing the case with the freight team associate including hospitalist and nursing staff more than 35 minutes RADHA Voice ID: [id number] Report ID: [id number] [place]
[2023-07-25] MEDS: ONDANSETRON 4 MG/2 ML VIAL IV PRN (13:22)
[2023-07-25] MEDS: FAMOTIDINE 20 MG/2 ML VIAL IV SCH (21:22)
[2023-07-26 01:16] VITALS: O2SAT 96
[2023-07-26 07:54] LABS: Absolute Lymphocytes (CBC) 0.4 K/uL (0.7-4.9); Hematocrit 31.7 % (39.6-49.0); MCV 95.7 fL (80-100); MPV 9.5 fL (7.6-11.3); Platelets 121 thou/uL (152-406); RBC Red Blood Cell Count 3.31 M/uL (4.33-5.43)
[2023-07-26] MEDS ORDERED: FENTANYL CITR 100 MCG/2 ML ONE (08:05)
[2023-07-26] MEDS ORDERED: MIDAZOLAM HCL 2 MG/2 ML INJ ONE (08:05)
[2023-07-26] MEDS ORDERED: NALOXONE HCL 2 MG/2 ML VIAL ONE (08:06)
[2023-07-26] MEDS ORDERED: NA CHLORIDE 0.9% 1,000 ML ONE (08:06)
[2023-07-26 08:09] LABS: Albumin 2.5 g/dL (3.4-5.0); Bilirubin Total 1.4 mg/dL (0.2-1.0); Potassium 3.8 mEq/L (3.5-5.1); Protein, Total 5.6 g/dL (6.4-8.2)
[2023-07-26 08:22] LABS: Protime INR 1.36
[2023-07-26] MEDS: MIDODRINE HCL 5 MG TABLET PO SCH ×2 (09:00→20:45)
--- NOTE | 2023-07-26 09:00 | P.PN ---
Date of Service: 07/26/23 Subjective: Feeling better today tentative plan for liver biopsy today no acute events overnight no nausea / vomiting, but hasn't eaten much, NPO for liver biopsy reports a few months of memory issues ROS: 10 point ROS as noted above, otherwise negative Physical Exam: GEN: Alert, oriented, NAD HEENT: Normal conjunctiva, sclera anicteric, CV: Regular rate and rhythm, no edema Pulm: Nonlabored respirations on room air, clear bilaterally ABD: soft, nontender, nondistended Neuro: Normal speech, normal affect Problem List: BERNIE, pre-renal; likely secondary to dehydration h/o Prostate cancer Liver lesions, concern for metastatic disease Hypertension Hyperlipidemia h/o gout BERNIE, pre-renal; likely secondary to dehydration Hypokalemia renal u/s (07/22): markedly heterogenerous echotexture of the liver probably metastatic disease. otherwise unremarkable. Nephrology consulted IV fluids dc'd 07/25 per nephro creatinine 1.89 -> 1.92 (07/26) NPO for liver biopsy replete electrolytes PRN will see how he tolerates PO / may need some IVF h/o Prostate cancer Liver lesions, concern for metastatic disease CT abdomen (07/22): heterogeneous attenuation of liver likely due to numerous underlying liver metastatic lesions. Interval prostatectomy. Small fluid collection along right iliac chain may be from lymph node dissection LFTs elevated; slight worse 07/26 GI consulted - f/u as outpatient NPO for liver biopsy today continue pepcid continue supportive care. Hypertension continue midodrine BID; decreased from TID per nephro 07/25 Hyperlipidemia h/o gout confirm home meds, restart as appropriate Code: Full Dispo: Home, ~1 day Pending Liver biopsy, LFTs improve
--- NOTE | 2023-07-26 10:02 | RAD REPORT ---
EXAM DESCRIPTION: US - Liver Biopsy Procedure - 07/26/2023 9:43 am CLINICAL HISTORY: liver lesion COMPARISON: No comparisons FINDINGS: Preoperative diagnosis: Indeterminate liver lesions. Post operative diagnosis: Same. Conscious Sedation: Provided. 30 minutes of face to face time. 1 mg Versed 50 mcg Fentanyl Fluoroscopy time: None Contrast used: None Estimated blood loss: Minimal Specimens:4 core samples obtained placed in formalin and sent to pathology The upper abdomen was prepped and draped in the usual sterile fashion. 1% lidocaine was infiltrated i nto the subcutaneous tissues for local anesthesia. Real time ultrasound scanning of the abdomen demon strated numerous left hepatic lobe lesions. Under ultrasound guidance, using a 18-gauge, 6 cm long, 2 cm throw core biopsy gun, 4 specimens were obtained of this lesion and sent to pathology for evaluat ion. There were no complications. IMPRESSION: Technically successful ultrasound-guided core biopsy of a suspicious mass left hepatic l obe. No immediate complications. Conscious sedation was utilized.
[2023-07-26] MEDS ORDERED: NA CHLORIDE 0.9% 1,000 ML IV SCH (12:00)
--- NOTE | 2023-07-26 12:21 | RAD REPORT ---
EXAM DESCRIPTION: CTAbdomen Pelvis W Contrast - 07/26/2023 12:06 pm CLINICAL HISTORY: evaluate liver lesions COMPARISON: Abdomen Pelvis W Contrast dated 09/26/2022 TECHNIQUE: CT of the abdomen and pelvis was performed. All CT scans are performed using dose optimization technique as appropriate and may include automated exposure control or mA/KV adjustment according to patient size. FINDINGS: Lower chest: Small right effusion. Trace left effusion. Atelectasis as a result of the rig ht fusion. Liver: Innumerable metastatic lesions are present within the liver occupying more than 2/3 of the vol ume. These are present in both the right and left hepatic lobe. Biliary: Contracted gallbladder with pericholecystic edema. This is nonspecific. Stomach: No significant focal abnormality. Duodenum: No significant focal abnormality. Pancreas: No significant abnormality. Spleen: No significant abnormality. Adrenal: No suspicious lesions. Kidney/ureter: No hydronephrosis. No renal calculi. Retroperitoneum: No retroperitoneal adenopathy. Vascular: No aneurysm. Bowel: No significant focal abnormality. Peritoneum: Mild perihepatic free fluid. Right pelvic sidewall fluid collection likely from lymphaden ectomy measuring 3.9 cm. Bladder: Grossly unremarkable. Reproductive: Prostatectomy. No evidence of residual tumor. Bones: No acute fracture. Multilevel degenerative changes are present in the spine. Other: n/a IMPRESSION: Innumerable metastatic lesions present within the liver with greater than 2/3 of the par enchyma replaced. The patient has a history of prostate cancer. No alternate primary identified. Biop sy results are pending. Contracted gallbladder but with pericholecystic edema. This could be due to underlying liver disease. Cholecystitis less likely but suggest correlating clinically.
--- NOTE | 2023-07-26 13:43 | EKG ---
Test Date: 2023-07-22 Test Time: 11:43:33 Double Cut Off Saw Operator: MB MEASUREMENT RESULTS: Intervals: Rate: 78 RI: 152 QRSD: 90 QT: 406 QTc: 462 [place]: P: 68 RI: 152 QRS: 74 T: 34 INTERPRETIVE STATEMENTS: Normal sinus rhythm Normal ECG Compared to ECG 10/30/2022 10:14:55 No significant changes Electronically Signed On 07-26-23 13:27:17 SAFETY PERSON by Jesús Colon
--- NOTE | 2023-07-26 13:51 | PN ---
Date of Progress Note: 07/26/2023 Subjective: The patient was admitted to the hospital with acute kidney injury. The patient had prostate CA with questionable of metastasis. The patient had metastasis to the liver. Liver biopsy has been done. Physical Examination: Vital Signs: When I saw the patient, blood pressure 114/65, pulse of 75, afebrile. Chest: Clear to auscultation. Heart: S1, S2. Regular. Abdomen: Soft, nontender. Extremities: No edema. Neuro: Alert. No focality. Laboratory Data: Hemoglobin 10.7. Sodium 142, potassium 3.8, bicarb 26, BUN 15, creatinine 1.9, GFR of 37, calcium 8.2. Magnesium of 2, albumin 2.5, corrected calcium is 9.4. Current Medications: The patient on, include Pepcid, midodrine, Zofran. Assessment And Plan: 1. Acute kidney injury secondary to prerenal, obstructive uropathy has been ruled out, off IV fluid. The patient's possible plan for CT with contrast for evaluation of his metastasis. I discussed with the patient in the presence of the . Risks, benefits, alternative, agree with the evaluation. We will go ahead and start the patient on hydration. We will plan for the CT after 6 to 8 hours of hydration. Then, we will maintain the patient on hydration. 2. Hypertension, controlled optimal. Continue current treatment. 3. Hypokalemia, we will supplement p.r.n. 4. Liver metastasis. We will follow up with primary. Time spent examining the patient [id number] reviewing that the lab and the radiology placing orders or discussing the case with the patient discussing the case with the front desk team member including hospitalist and nursing staff more than 35 minutes RADHA Voice ID: [id number] Report ID: [id number] [place]
[2023-07-26 14:47] LABS: Albumin, (SPE) 2.8 g/dL (3.8-4.8); Alpha-1-Globulins 0.3 g/dL (0.2-0.3); Alpha-2-Globulins 0.7 g/dL (0.5-0.9); Gamma Globulins 0.6 g/dL (0.8-1.7); INTERPRETATION Consistent with
[2023-07-26] MEDS: ONDANSETRON 4 MG/2 ML VIAL IV PRN (19:48)
[2023-07-26] MEDS: FAMOTIDINE 20 MG TAB PO SCH (20:46)
[2023-07-26] MEDS ORDERED: TRAZODONE 50 MG TABLET PO SCH (21:00)
[2023-07-27 04:42] LABS: Albumin 2.3 g/dL (3.4-5.0); Bilirubin Total 1.7 mg/dL (0.2-1.0); Potassium 3.7 mEq/L (3.5-5.1); Protein, Total 5.3 g/dL (6.4-8.2)
[2023-07-27] MEDS: MIDODRINE HCL 5 MG TABLET PO SCH (07:48)
[2023-07-27] MEDS: FAMOTIDINE 20 MG TAB PO SCH (07:48)
[2023-07-27 08:03] VITALS: BP 117/67; TEMP 97.8
--- NOTE | 2023-07-27 08:46 | P.DS ---
Admission Date: 07/22/23 Discharge Date: 07/27/23 Disposition: ROUTINE DISCHARGE Discharge Condition: GOOD Reason for Admission: Diminished appetite; intractable nausea vomiting; acute kidney injury Consultations: GI - Dr. Singletary Nephrology - Dr. Reece, Dr. Duran Brief History of Present Illness: 72yo M, PMH: Hypertension, gout, hyperlipidemia, h/o prostate cancer Patient who came to the hospital with anorexia and generalized weakness. Patient been having some nausea and vomiting and patient came to the emergency room for further evaluation. 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 Patient was hypotensive and patient was given IV fluids in the emergency room. Patient's blood pressure improved. Patient is he will pass this. Patient's creatinine is elevated. Once creatinine improves we can do contrast study. Patient will be admitted to the hospital for further workup. Hospital Course: Problem List: BERNIE, pre-renal; likely secondary to dehydration Innumerable Metastatic liver lesions h/o Prostate cancer Hypertension Hyperlipidemia h/o gout Patient presented with generalized weakness, nausea/vomiting. CT abdomen without contrast noted multiple liver lesions concerning for metastatic disease of the liver. LFTs elevated on admission (AST 142, ALT 113, ALP 347, T. bili 1.3). GI was consulted and evaluated patient. Patient underwent successful ultrasound- guided biopsy of the mass in the left hepatic lobe. CTA abdomen noted innumerable metastatic lesions in the liver with over 2/3 of parenchyma replaced. Contracted gallbladder but with pericholecystic edema. Discussed results of imaging findings with patient and GI and advised the patient to follow up with GI / oncology for further work up / discuss liver biopsy results. No further inpatient work up. LFTs remained relatively stable throughout hospitalization. Recommend to repeat blood work in ~1 week to monitor LFTs / chem panel. Patient noted to have an BERNIE on admission. Serum creatinine was 2.91 on admission. Nephrology was consulted. Renal function improved with IV fluids. Renal ultrasound ruled out obstructive uropathy. Noted similar findings as above otherwise unremarkable. Suspect pre-renal BERNIE secondary to dehydration. Recommend repeat blood work in ~1 week to monitor renal function. Creatinine on discharge: 1.92 Discussed with nephrology and recommend to stop taking midodrine on discharge. Medications: Zofran 30 tablets as needed for nausea Pepcid Hold off on taking carvedilol / valsartan for now. Blood pressure this hospitalization has been low to low-normal off his home antihypertensives. Continue to hold off on taking carvedilol and valsartan for now. Check blood pressure daily. If blood pressure is consistently > 150, okay to restart carvedilol. If blood pressure is still > 150 after a few hours of restarting home carvedilol, can restart valsartan. Advised to keep daily log of BP readings to take to follow up appointments in case home antihypertensives need to be adjusted / restarted. Follow up: PCP 3-5 days GI in 1-2 weeks Oncology 1-2 weeks Physical Exam: GEN: Alert, oriented, NAD HEENT: Normal conjunctiva, sclera anicteric, CV: Regular rate and rhythm, no edema Pulm: Nonlabored respirations on room air, clear bilaterally ABD: soft, nontender, nondistended Neuro: Normal speech, normal affect Vital Signs/Physical Exam: Temp Pulse Resp BP Pulse Ox 97.8 F 70 16 117/67 97 07/27/23 07:58 07/27/23 07:58 07/27/23 07:58 07/27/23 07:58 07/27/23 07:58 Laboratory Data at Discharge: WBC 4.10 thou/uL (4.3-10.9) L 07/26/23 07:10 Hgb 10.7 g/dL (13.6-17.9) L 07/26/23 07:10 Hct 31.7 % (39.6-49.0) L 07/26/23 07:10 Plt Count 121 thou/uL (152-406) L 07/26/23 07:10 PT 14.8 SECONDS (9.5-12.5) H 07/26/23 07:10 INR 1.36 07/26/23 07:10 APTT 30.0 SECONDS (24.3-36.9) 07/26/23 07:10 Sodium 139 mEq/L (136-145) 07/27/23 03:41 Potassium 3.7 mEq/L (3.5-5.1) 07/27/23 03:41 BUN 13 mg/dL (7-18) 07/27/23 03:41 Creatinine 1.94 mg/dL (0.70-1.30) H 07/27/23 03:41 Glucose 84 mg/dL (74-106) 07/27/23 03:41 Phosphorus 3.7 mg/dL (2.5-4.9) 07/23/23 05:20 Magnesium 2.0 mg/dL (1.6-2.4) 07/27/23 03:41 Total Bilirubin 1.7 mg/dL (0.2-1.0) H 07/27/23 03:41 AST 96 U/L (15-37) H 07/27/23 03:41 ALT 109 U/L (16-61) H 07/27/23 03:41 Alkaline Phosphatase 341 U/L (45-117) H 07/27/23 03:41 Home Medications: Allopurinol 200 mg PO DAILY 03/17/21 Atorvastatin Calcium [Lipitor*] 10 mg PO BEDTIME 03/17/21 Hydrocodone 7.5/APAP 325 [Beverly 7.5/325 mg*] 1 tab PO Q4H PRN tab 03/24/21 Sildenafil Citrate 20 mg PO DAILY 07/23/23 Famotidine [Pepcid] 40 mg PO BID 30 Days #60 tab 07/27/23 Ondansetron [Zofran] 4 mg PO Q8H PRN 10 Days #30 tab 07/27/23 New Medications: Famotidine [Pepcid] 40 mg PO BID 30 Days #60 tab Ondansetron [Zofran] 4 mg PO Q8H PRN 10 Days #30 tab PRN Reason: Nausea / Vomiting Physician Discharge Instructions: Patient presented with generalized weakness, nausea/vomiting. CT abdomen without contrast noted multiple liver lesions concerning for metastatic disease of the liver. LFTs elevated on admission (AST 142, ALT 113, ALP 347, T. bili 1.3). GI was consulted and evaluated patient. Patient underwent successful ultrasound- guided biopsy of the mass in the left hepatic lobe. CTA abdomen noted innumerable metastatic lesions in the liver with over 2/3 of parenchyma replaced. Contracted gallbladder but with pericholecystic edema. Discussed results of imaging findings with patient and GI and advised the patient to follow up with GI / oncology for further work up / discuss liver biopsy results. No further inpatient work up. LFTs remained relatively stable throughout hospitalization. Recommend to repeat blood work in ~1 week to monitor LFTs / chem panel. Patient noted to have an BERNIE on admission. Serum creatinine was 2.91 on admission. Nephrology was consulted. Renal function improved with IV fluids. Renal ultrasound ruled out obstructive uropathy. Noted similar findings as above otherwise unremarkable. Suspect pre-renal BERNIE secondary to dehydration. Recommend repeat blood work in ~1 week to monitor renal function. Creatinine on discharge: 1.92 Discussed with nephrology and recommend to stop taking midodrine on discharge. Medications: Zofran 30 tablets as needed for nausea Pepcid Hold off on taking carvedilol / valsartan for now. Blood pressure this hospitalization has been low to low-normal off his home antihypertensives. Continue to hold off on taking carvedilol and valsartan for now. Check blood pressure daily. If blood pressure is consistently > 150, okay to restart carvedilol. If blood pressure is still > 150 after a few hours of restarting home carvedilol, can restart valsartan. Advised to keep daily log of BP readings to take to follow up appointments in case home antihypertensives need to be adjusted / restarted. Follow up: PCP 3-5 days GI in 1-2 weeks Oncology 1-2 weeks Followup: NONE,NONE [UNKNOWN] - Time spent managing pt's care (in minutes): 45
[2023-07-30 15:36] LABS: Alpha Fetoprotein-Tumor Marker 3.9 ng/mL (<6.1)
== END 2023-07-27 09:40 | disposition home or self-care (01) | DRG 684 ==
LOC: ER 11:22 → ERHOLD 17:31 → 2ND 20:07
PROVIDERS: ADMIT Hospitalist; ATTEND Hospitalist
PROC: 0FB23ZX Excision of Left Lobe Liver, Percutaneous Approach, Diagnostic (ICD-10-PCS; principal; 2023-07-26)
DX: N17.9 Acute kidney failure, unspecified (principal); I95.9 Hypotension, unspecified; I10 Essential (primary) hypertension; M10.9 Gout, unspecified; E87.6 Hypokalemia; D64.9 Anemia, unspecified; E86.0 Dehydration; K76.9 Liver disease, unspecified; E78.00 Pure hypercholesterolemia, unspecified; Z85.46 Personal history of malignant neoplasm of prostate; Z11.52 Encounter for screening for COVID-19; Z90.79 Acquired absence of other genital organ(s); Z79.02 Long term (current) use of antithrombotics/antiplatelets; Z79.899 Other long term (current) drug therapy; Z87.891 Personal history of nicotine dependence
CPT/HCPCS: 36415; 47000; 71045; 71250; 74176; 74177; 76770; 80048; 80053; 80074; 80076; 82105; 82378; 82533; 82550; 83735; 83880; 84100; 84165; 84439; 84443; 84484; 85025; 85610; 85730; 86334; 87804; 87811; 88307; 93005; 93306; J2250; J2310; J2405; J3010; J7030; P9047; Q9967

== ENCOUNTER → 2023-08-13 | Emergency (ER) | payer OTHER ==
[~2023-08-13] MED LIST: ALBUMIN HUMAN 25% 100 ML IV ONE; ALBUTEROL 2.5 MG/3 ML NEB SOL ONE; CEFEPIME 2 GM VIAL ONE; IPRATROPIUM BROM 0.5MG/2.5ML ONE; NA CHLORIDE 0.9% 0 ML ONE; NA CHLORIDE 0.9% 1,000 ML ONE; NA CHLORIDE 0.9% 100 ML ONE; NA CHLORIDE 0.9% 250 ML ONE; NA CHLORIDE 0.9% 500 ML ONE; PANTOPRAZOLE 40 MG INJ ONE; SOD POLYSTYREN SUL 15 GM/60 ML UCUP ONE; VANCOMYCIN 1 GM/VIAL ONE; VITAMIN K (ADULT) 10 MG/ML ONE
--- NOTE | 2023-08-13 15:59 | RAD REPORT ---
EXAM DESCRIPTION: RADChest Single View08/13/2023 3:35 pm CLINICAL HISTORY: hypotension COMPARISON: Chest Single View dated 07/22/2023; Chest Pa And Lat (2 Views) dated 10/30/2022; Chest Pa A nd Lat (2 Views) dated 03/17/2021; Abdomen Pelvis W Contrast dated 07/26/2023 TECHNIQUE: Portable AP view of the chest. FINDINGS: Mildly progressive patchy medial right basilar airspace opacification. Blunting of the cos tophrenic angles bilaterally, which may reflect pleural thickening or small effusions. No pneumothor ax or effusion. The cardiomediastinal contours are unremarkable. IMPRESSION: Mildly progressive medial right basilar patchy airspace opacification, may reflect atele ctasis or early airspace disease. Bilateral pleural thickening or trace effusions.
[2023-08-13 16:23] LABS: Absolute Lymphocytes (CBC) 1.5 K/uL (0.7-4.9); Hematocrit 25.4 % (39.6-49.0); Lymphocytes % 7.4 % (15.3-44.8); MCV 94.1 fL (80-100); MPV 9.8 fL (7.6-11.3); Platelets 123 thou/uL (152-406)
[2023-08-13 16:39] LABS: Albumin 2.3 g/dL (3.4-5.0); Bilirubin Indirect, Calculated 0.4 mg/dL (0.2-0.8); Bilirubin Total 2.4 mg/dL (0.2-1.0); Potassium 5.3 mEq/L (3.5-5.1); Protein, Total 5.9 g/dL (6.4-8.2)
[2023-08-13 16:42] LABS: Magnesium 2.8 mg/dL (1.6-2.4); Troponin High Sensitivity 75.9 pg/mL (<58.9)
[2023-08-13 17:52] LABS: Protime INR 2.36
[2023-08-13 18:07] LABS: Albumin 2.1 g/dL (3.4-5.0); Bilirubin Total 2.4 mg/dL (0.2-1.0); Potassium 5.1 mEq/L (3.5-5.1); Protein, Total 5.6 g/dL (6.4-8.2)
--- NOTE | 2023-08-13 19:00 | RAD REPORT ---
EXAM DESCRIPTION: CT - Abdomen Pelvis Wo Contrast - 08/13/2023 6:02 pm CLINICAL HISTORY: renal failure COMPARISON: Abdomen Pelvis W Contrast dated 07/26/2023; Abdomen Pelvis W Contrast dated 09/26/2022 TECHNIQUE: Thin cut axial CT imaging of the abdomen and pelvis was performed without IV contrast. Mu ltiplanar reformats were generated and reviewed. All CT scans are performed using dose optimization technique as appropriate and may include automated exposure control or mA/KV adjustment according to patient size. FINDINGS: Progressive layering small effusions with underlying subsegmental atelectasis. The liver shows progressive enlargement, measuring 24.7 cm in long axis with progressive innumerable hypoattenuating masses, although discrete measurements are difficult to obtain in the absence of IV c ontrast. Spleen is again enlarged measuring 14.6 cm in long axis. Adrenal glands and pancreas show no suspicious findings. Gallbladder and biliary tree are also without suspicious finding. Symmetric renal contour, without suspicious parenchymal findings within limits of noncontrast techniq ue. No evidence of radiopaque calculi or hydroureteronephrosis. No dilated bowel loops or bowel wall thickening. No free air, free fluid or inflammatory stranding. N o hernia, mass or bulky lymphadenopathy. Stable fluid collection along the right pelvic sidewall dwayne uring 4.2 cm. The urinary bladder is decompressed limiting evaluation. No suspicious bony findings. IMPRESSION: Progressive enlargement of the liver with innumerable hypoattenuating lesions suggesting metastases, please correlate with surgical pathology results. Progressive layering small bilateral pleural effusions. Other stable findings including splenomegaly.
--- NOTE | 2023-08-13 19:02 | ER ---
Nurse's Notes [facility] Name: Carlyle Viveros Age: 72 yrs Sex: Male : 1950 Arrival Date: 08/13/2023 Time: 14:42 Bed 14 Private MD: Narinder Darling Diagnosis: Hepatic failure, unspecified without coma;Abnormal findings on diagnostic imaging of liver and biliary tract;Liver cell carcinoma;Abnormal coagulation profile;Hypotension, unspecified;Severe sepsis without septic shock;Anemia, unspecified;Hyperkalemia;Acute kidney failure, unspecified-ON CHRONIC;Pneumonia due to other specified bacteria-RIGHT LOWER LOBE;Pleural effusion, not elsewhere classified;Retention of urine, unspecified-PVR 400 CC Presentation: 08/13 14:50 Chief complaint: Spouse and/or significant other states: Low BP at home, recently dx w/ ph liver cancer, pt reports generalized weakness. Coronavirus screen: Vaccine status: Patient reports being unvaccinated. Ebola Screen: No symptoms or risks identified at this time. Initial Sepsis Screen: Does the patient meet any 2 criteria? No. Patient's initial sepsis screen is negative. Initial Sepsis Screen: Does the patient have a suspected source of infection? No. Patient's initial sepsis screen is negative. Risk Assessment: Do you want to hurt yourself or someone else? Patient reports no desire to harm self or others. Onset of symptoms was August 13, 2023. 14:50 Method Of Arrival: Ambulatory ph 14:50 Acuity: NIMCO 2 ph Historical: - Allergies: 14:52 No Known Allergies; ph - PMHx: 14:52 Hypercholesterolemia; Hypertensive disorder; Prostate Cancer; Liver Cancer ph (prostatectomy); - PSHx: 14:52 prostatectomy; ph - Immunization history:: Adult Immunizations unknown. - Social history:: Smoking status: Patient denies any tobacco usage or history of. - Family history:: not pertinent. Screenin:00 [facility] ED Fall Risk Assessment (Adult) History of falling in the last 3 months, me1 including since admission No falls in past 3 months (0 pts) Confusion or Disorientation No (0 pts) Intoxicated or Sedated No (0 pts) Impaired Gait No (0 pts) Mobility Assist Device Used No (0 pt) Altered Elimination No (0 pt) Score/Fall Risk Level 0 - 2 = Low Risk Maintained a safe environment, Provided non-skid footwear, Hourly rounding (assess needs \T\ fall precautionary measures) done. Abuse screen: Denies threats or abuse. Nutritional screening: No deficits noted. Tuberculosis screening: No symptoms or risk factors identified. Assessment: 15:00 General: Appears uncomfortable, ill, well groomed, well developed, well nourished, me1 Behavior is calm, cooperative, appropriate for age, Reports feeling ill for fatigue for >3 days, recent dx with liver cancer, has first appt with Dr Javed tomorrow. Has felt sick for some time but today was feeling more weak than normal and noticed that his bp was low. Pain: Denies pain. Neuro: Level of Consciousness is awake, alert, obeys commands, Oriented to person, place, time, situation, Appropriate for age. Cardiovascular: Capillary refill < 3 seconds Patient's skin is warm and dry. edema to BLE. Respiratory: Airway is patent Trachea midline Respiratory effort is even, unlabored, Respiratory pattern is regular, symmetrical. GI: Abdomen is distended, noted to have ascites, Reports nausea, vomiting. Derm: Skin is jaundiced. 15:49 Reassessment: Patient and/or family updated on plan of care and expected duration. Pain ll1 level reassessed. 17:33 Reassessment: No changes from previously documented assessment. Patient and/or family me1 updated on plan of care and expected duration. Pain level reassessed. 19:00 General: Appears in no apparent distress. comfortable, well groomed, well developed, pf1 Behavior is calm, cooperative, appropriate for age, quiet, Reports feeling ill for since mid May. fatigue for. 19:00 Pain: Denies pain. Neuro: Level of Consciousness is awake, alert, obeys commands, pf1 Oriented to person, place, time, situation, Reports weakness in generalized. Cardiovascular: No deficits noted. Capillary refill < 3 seconds Patient's skin is warm and dry. Respiratory: Airway is patent Respiratory effort is even, unlabored, Respiratory pattern is regular, symmetrical. GI: Abdomen is round distended, noted to have ascites, Bowel sounds present X 4 quads. Reports. : No deficits noted. No signs and/or symptoms were reported regarding the genitourinary system. EENT: No deficits noted. No signs and/or symptoms were reported regarding the EENT system. Derm:. Musculoskeletal: Swelling present in right leg and left leg. 20:00 Reassessment: Patient appears in no apparent distress at this time. No changes from pf1 previously documented assessment. Patient and/or family updated on plan of care and expected duration. Pain level reassessed. Patient states symptoms have improved. Vital Signs: 14:50 BP 107 / 64; Pulse 90; Resp 18; Temp 97.9; Pulse Ox 98% on R/A; Weight 99.79 kg; Height ph 6 ft. 1 in. ; 15:00 BP 114 / 80; Pulse 90; Resp 10; Pulse Ox 98% on R/A; ll1 16:00 BP 101 / 49; Pulse 87; Resp 12; Pulse Ox 96% on R/A; ll1 17:00 BP 104 / 61; Pulse 90; Resp 12; Pulse Ox 97% on R/A; ll1 18:00 BP 106 / 51; Pulse 95; Resp 12; Pulse Ox 97% on R/A; ll1 18:44 BP 113 / 52; Pulse 96; Resp 12; Pulse Ox 97% on R/A; ll1 19:40 BP 107 / 48; Pulse 96; Resp 16; Pulse Ox 96% on R/A; mb9 20:00 BP 112 / 63; Pulse 108; Resp 20; Temp 98; Pulse Ox 100% on R/A; Pain 0/10; pf1 14:50 Body Mass Index 29.03 (99.79 kg, 185.42 cm) ph 20:00 Pain Scale: Adult pf1 ED Course: 14:44 Patient arrived in ED. mr 14:45 Narinder Darling DO is Private Physician. mr 14:52 Triage completed. ph 14:53 Arm band placed on Patient placed in waiting room, Patient notified of wait time. ph 14:54 Wesley Cary MD is Attending Physician. rt 15:00 Patient has correct armband on for positive identification. Bed in low position. Call me1 light in reach. Side rails up X2. Provided Education on: POC. Verbalized understanding. . 15:00 No provider procedures requiring assistance completed. Patient did not have IV access me1 during this emergency room visit. 15:37 XRAY Chest (1 view) In Process Unspecified. EDMS 15:49 Patient placed in an exam room, on a stretcher. ll1 16:05 Cindy Cruz, GAUTAM is Primary Nurse. me1 16:08 EKG done, by ED staff, reviewed by Wesley Cary MD. em1 17:33 Lactate w/ 2H reflex if indic. Sent. me1 17:33 Ptt, Activated Sent. me1 17:33 Protime (+inr) Sent. me1 17:33 CMP Sent. me1 17:33 Inserted saline lock: 22 gauge in right hand, using aseptic technique. Blood collected. me1 18:04 CT Abd/Pelvis - Without Contrast In Process Unspecified. EDMS 18:41 Attending Physician role handed off by Wesley Cary MD sheryl 18:41 Bryan Yanez MD is Attending Physician. sheryl 18:50 Dr. Yanez initiated transfer to [facility] spoke with Soniya Peterson. 18:56 Blood Culture Adult (2) Sent. 1 18:[address] [facility] initiated by Dr Yanez. bd 19:26 Type And Screen Sent. ty 19:27 [facility] accepted Pt for transfer to [facility] [place] [address] Rm: 826 by Maira Henao per Soniya Peterson. 19:27 EMS will transport with an ETA of 2019. 20:00 Terry cath inserted, using sterile technique, 16 Fr., by tx, balloon inflated, to ty gravity drainage, returned clear yellow urine. Patient tolerated well. 20:15 Called [facility] transfer center to [facility] initiated transfer, spoke with Megan Foster. Administered Medications: 16:09 Drug: NS 0.9% IV 1000 ml IV at 1 bolus Per protocol; 1000 mL bolus Route: IV; Rate: 1 me1 bolus; Site: right antecubital; 17:33 Follow up: Response: No adverse reaction; IV Status: Completed infusion; IV Intake: me1 1000ml 19:20 Drug: NS 0.9% IV 500 ml IV at bolus once Route: IV; Rate: bolus; Site: right mb9 antecubital; 19:50 Follow up: Response: No adverse reaction; IV Status: Completed infusion; IV Intake: pf1 500ml 19:20 Drug: Albuterol Inhalation 2.5 mg Inhalation once Route: Inhalation; mb9 20:20 Follow up: Response: No adverse reaction; Marked relief of symptoms pf1 19:20 Drug: Ipratropium Inhalation Aerosol 0.5 mg Inhalation once Route: Inhalation; mb9 20:20 Follow up: Response: No adverse reaction; Marked relief of symptoms pf1 19:20 Drug: Kayexalate PO 30 grams PO once Route: PO; mb9 20:20 Follow up: Response: No adverse reaction pf1 19:25 Drug: Albumin IVPB 25 grams 100 ml IVPB once; (Note: Albumin 25% concentration) Volume: mb9 100 ml; Route: IVPB; Site: right antecubital; 19:50 Follow up: Response: No adverse reaction; IV Status: Completed infusion pf1 19:25 Drug: Pantoprazole IVP 40 mg IVP once Route: IVP; Site: right hand; mb9 20:25 Follow up: Response: No adverse reaction; Marked relief of symptoms pf1 19:26 Drug: Cefepime IVPB 2 grams IVPB at 200 ml/hr once over 30 mins; (mix in NS 100 mL) mb9 Route: IVPB; Rate: 200 ml/hr; Infused Over: 30 mins; Site: right hand; 19:56 Follow up: Response: No adverse reaction; IV Status: Completed infusion pf1 19:26 Drug: NS 0.9% IV 1000 ml IV at 1 bolus Per protocol; 1000 mL bolus Route: IV; Rate: 1 mb9 bolus; Site: right antecubital; 20:20 Follow up: Response: No adverse reaction; IV Status: Completed infusion; IV Intake: pf1 1000ml 19:30 Drug: Phytonadione Sub-Q 10 mg Sub-Q once Route: Sub-Q; Site: right lower abdomen; mb9 20:30 Follow up: Response: No adverse reaction pf1 19:51 Drug: vancoMYCIN IVPB 1 grams IVPB once over 2 hrs Route: IVPB; Infused Over: 2 hrs; mb9 Site: left antecubital; 20:36 Follow up: Response: No adverse reaction; IV Status: Infusion continued upon transfer pf1 Medication: 15:00 VIS not applicable for this client. me1 Intake: 17:33 IV: 1000ml; Total: 1000ml. me1 19:50 IV: 500ml; Total: 1500ml. pf1 20:20 IV: 1000ml; Total: 2500ml. pf1 Outcome: 19:02 ER care complete, transfer ordered by MD. saucedo 20:24 Transferred by ground EMS to [facility], Transfer form pf1 completed. X-rays sent w/ patient. Note: Patient report given to GAUTAM Echeverria at [facility] and [facility] [employer] with EMS. 20:29 Condition: stable pf1 20:29 Instructed on the need for transfer, Demonstrated understanding of instructions, 20:40 Patient left the ED. pf1 Signatures: Dispatcher [employer] EDMS Kendra Moreland Corey, MD MD cha Rivera, [facility], [facility] Reg mr Royer Roca em1 Ludivina Strong RN RN Riki Bob RN RN 1 Mer Gaitan Mary Beth, RN RN mb9 Wesley Cary MD MD rt Finley, Pamala, RN RN pf1 Cindy Cruz RN RN me1 Barrie Velez ty
--- NOTE | 2023-08-13 19:03 | EDPHYS ---
Physician Documentation [facility] Name: Carlyle Viveros Age: 72 yrs Sex: Male : 1950 Arrival Date: 08/13/2023 Time: 14:42 Bed 14 Private MD: [facility]ong [facility] ED Physician Bryan Yanez HPI: 08/13 18:04 This 72 yrs old Male presents to ER via Ambulatory with complaints of Low Bp. rt 18:04 Patient presents to the ED with progressively worsening generalized weakness, fatigue. rt The patient is due to start chemotherapy soon for metastatic disease to the liver. Denies other acute complaints at this time, symptoms are moderate in severity, no other aggravating or elevating factors.. Historical: - Allergies: 14:52 No Known Allergies; ph - PMHx: 14:52 Hypercholesterolemia; Hypertensive disorder; Prostate Cancer; Liver Cancer ph (prostatectomy); - PSHx: 14:52 prostatectomy; ph - Immunization history:: Adult Immunizations unknown. - Social history:: Smoking status: Patient denies any tobacco usage or history of. - Family history:: not pertinent. ROS: 18:04 Cardiovascular: Negative for chest pain, palpitations, and edema, Respiratory: Negative rt for shortness of breath, cough, wheezing, and pleuritic chest pain, Abdomen/GI: Negative for abdominal pain, nausea, vomiting, diarrhea, and constipation, MS/Extremity: Negative for injury and deformity, Skin: Negative for injury, rash, and discoloration, Neuro: Negative for headache, weakness, numbness, tingling, and seizure, Psych: Negative for depression, anxiety, suicide ideation, homicidal ideation, and hallucinations, 18:04 Constitutional: Positive for fatigue, malaise, poor PO intake, Exam: 18:04 Constitutional: This is a well developed, well nourished patient who is awake, alert, rt and in no acute distress. Head/Face: Normocephalic, atraumatic. Chest/axilla: Normal chest wall appearance and motion. Nontender with no deformity. No lesions are appreciated. Cardiovascular: Regular rate and rhythm with a normal S1 and S2. No gallops, murmurs, or rubs. Normal PMI, no JVD. No pulse deficits. Respiratory: Lungs have equal breath sounds bilaterally, clear to auscultation and percussion. No rales, rhonchi or wheezes noted. No increased work of breathing, no retractions or nasal flaring. Abdomen/GI: Soft, non-tender, with normal bowel sounds. No distension or tympany. No guarding or rebound. No evidence of tenderness throughout. Skin: Warm, dry with normal turgor. Normal color with no rashes, no lesions, and no evidence of cellulitis. MS/ Extremity: Pulses equal, no cyanosis. Neurovascular intact. Full, normal range of motion. Neuro: Awake and alert, GCS 15, oriented to person, place, time, and situation. Cranial nerves II-XII grossly intact. Motor strength 5/5 in all extremities. Sensory grossly intact. Cerebellar exam normal. Normal gait. Psych: Awake, alert, with orientation to person, place and time. Behavior, mood, and affect are within normal limits. 18:04 ECG was reviewed by the Attending Physician. Vital Signs: 14:50 BP 107 / 64; Pulse 90; Resp 18; Temp 97.9; Pulse Ox 98% on R/A; Weight 99.79 kg; Height ph 6 ft. 1 in. ; 15:00 BP 114 / 80; Pulse 90; Resp 10; Pulse Ox 98% on R/A; ll1 16:00 BP 101 / 49; Pulse 87; Resp 12; Pulse Ox 96% on R/A; ll1 17:00 BP 104 / 61; Pulse 90; Resp 12; Pulse Ox 97% on R/A; ll1 18:00 BP 106 / 51; Pulse 95; Resp 12; Pulse Ox 97% on R/A; ll1 18:44 BP 113 / 52; Pulse 96; Resp 12; Pulse Ox 97% on R/A; ll1 19:40 BP 107 / 48; Pulse 96; Resp 16; Pulse Ox 96% on R/A; mb9 20:00 BP 112 / 63; Pulse 108; Resp 20; Temp 98; Pulse Ox 100% on R/A; Pain 0/10; pf1 14:50 Body Mass Index 29.03 (99.79 kg, 185.42 cm) ph 20:00 Pain Scale: Adult pf1 MDM: 14:59 Patient medically screened. rt 18:04 Differential Diagnosis BERNIE, metastatic disease, dehydration. Data reviewed: vital rt signs, nurses notes. Consideration of Admission/Observation Patient was admitted/placed on observation. Management of patient was discussed with the following: Hospitalist: Agrees to admit pending CT scan. I considered the following discharge prescriptions or medication management in the emergency department Medications were administered in the Emergency Department. See MAR. Independent interpretation of the following test(s) in the Emergency Department X-Ray: My interpretation is No pneumonia seen mitral rotation of x-ray images. Care significantly affected by the following chronic conditions: Metastatic disease. Counseling: I had a detailed discussion with the patient and/or guardian regarding the historical points, exam findings, and any diagnostic results supporting the discharge/admit diagnosis, lab results, radiology results, the need for further work-up and treatment in the hospital. Response to treatment: There is no appreciated change of the patient's symptoms at this time. 08/13 15:06 Order name: Basic Metabolic Panel; Complete Time: 16:54 rt 08/13 15:06 Order name: CBC with Diff; Complete Time: 16:54 rt 08/13 15:06 Order name: LFT's; Complete Time: 16:54 rt 08/13 15:06 Order name: Magnesium; Complete Time: 16:54 rt 08/13 15:06 Order name: Troponin HS; Complete Time: 16:54 rt 08/13 17:22 Order name: Blood Culture Adult (2) rt 08/13 17:22 Order name: CMP; Complete Time: 18:08 rt 08/13 17:22 Order name: Lactate w/ 2H reflex if indic.; Complete Time: 18:08 rt 08/13 17:22 Order name: Protime (+inr); Complete Time: 18:08 rt 08/13 17:22 Order name: Ptt, Activated; Complete Time: 18:08 rt 08/13 18:47 Order name: Type And Screen sheryl 08/13 18:55 Order name: Bb Add On bd 08/13 19:12 Order name: Flu sheryl 08/13 19:12 Order name: SARS RAPID; Complete Time: 20:26 sheryl 08/13 19:16 Order name: AMMONIA; Complete Time: 20:26 sheryl 08/13 15:06 Order name: XRAY Chest (1 view); Complete Time: 16:11 rt 08/13 17:22 Order name: CT Abd/Pelvis - Without Contrast; Complete Time: 20:26 rt 08/13 15:06 Order name: EKG; Complete Time: 15:07 rt 08/13 15:06 Order name: Cardiac monitoring; Complete Time: 16:09 rt 08/13 15:06 Order name: EKG - Nurse/Tech; Complete Time: 16:08 rt 08/13 15:06 Order name: IV Saline Lock; Complete Time: 17:14 rt 08/13 15:06 Order name: Labs collected and sent; Complete Time: 17:14 rt 08/13 15:06 Order name: O2 Per Protocol; Complete Time: 16:10 rt 08/13 15:06 Order name: O2 Sat Monitoring; Complete Time: 16:10 rt 08/13 17:22 Order name: Accucheck; Complete Time: 19:39 rt 08/13 17:22 Order name: IV Saline Lock - Large Bore; Complete Time: 19:38 rt 08/13 17:22 Order name: Vital Signs; Complete Time: 19:38 rt 08/13 18:32 Order name: Terry; Complete Time: 19:59 [facility] 08/13 18:48 Order name: IV Saline Lock - Large Bore; Complete Time: 19:08 [facility] EC:04 Rate is 88 beats/min. Rhythm is regular, Normal Sinus Rhythm with No ectopy. QRS Mart rt is Normal. MN interval is normal. QRS interval is normal. QT interval is normal. No Q waves. T waves are Normal. No ST changes noted. Interpreted by me. Administered Medications: 16:09 Drug: NS 0.9% IV 1000 ml IV at 1 bolus Per protocol; 1000 mL bolus Route: IV; Rate: 1 me1 bolus; Site: right antecubital; 17:33 Follow up: Response: No adverse reaction; IV Status: Completed infusion; IV Intake: me1 1000ml 19:20 Drug: NS 0.9% IV 500 ml IV at bolus once Route: IV; Rate: bolus; Site: right mb9 antecubital; 19:50 Follow up: Response: No adverse reaction; IV Status: Completed infusion; IV Intake: pf1 500ml 19:20 Drug: Albuterol Inhalation 2.5 mg Inhalation once Route: Inhalation; 9 20:20 Follow up: Response: No adverse reaction; Marked relief of symptoms pf1 19:20 Drug: Ipratropium Inhalation Aerosol 0.5 mg Inhalation once Route: Inhalation; 9 20:20 Follow up: Response: No adverse reaction; Marked relief of symptoms pf1 19:20 Drug: Kayexalate PO 30 grams PO once Route: PO; mb9 20:20 Follow up: Response: No adverse reaction pf1 19:25 Drug: Albumin IVPB 25 grams 100 ml IVPB once; (Note: Albumin 25% concentration) Volume: mb9 100 ml; Route: IVPB; Site: right antecubital; 19:50 Follow up: Response: No adverse reaction; IV Status: Completed infusion pf1 19:25 Drug: Pantoprazole IVP 40 mg IVP once Route: IVP; Site: right hand; mb9 20:25 Follow up: Response: No adverse reaction; Marked relief of symptoms pf1 19:26 Drug: Cefepime IVPB 2 grams IVPB at 200 ml/hr once over 30 mins; (mix in NS 100 mL) mb9 Route: IVPB; Rate: 200 ml/hr; Infused Over: 30 mins; Site: right hand; 19:56 Follow up: Response: No adverse reaction; IV Status: Completed infusion pf1 19:26 Drug: NS 0.9% IV 1000 ml IV at 1 bolus Per protocol; 1000 mL bolus Route: IV; Rate: 1 mb9 bolus; Site: right antecubital; 20:20 Follow up: Response: No adverse reaction; IV Status: Completed infusion; IV Intake: pf1 1000ml 19:30 Drug: Phytonadione Sub-Q 10 mg Sub-Q once Route: Sub-Q; Site: right lower abdomen; mb9 20:30 Follow up: Response: No adverse reaction pf1 19:51 Drug: vancoMYCIN IVPB 1 grams IVPB once over 2 hrs Route: IVPB; Infused Over: 2 hrs; mb9 Site: left antecubital; 20:36 Follow up: Response: No adverse reaction; IV Status: Infusion continued upon transfer pf1 Disposition Summary: 08/13/23 19:02 Transfer Ordered Notes: Reason: Higher level of care sheryl Condition: Serious sheryl Problem: new sheryl Symptoms: are unchanged sheryl Transfer Location: [facility] [[email or web address]System(08/13/23 20:27) sheryl Accepting Physician: TO ICU(08/13/23 20:40) pf1 Diagnosis - Hepatic failure, unspecified without coma sheryl - Abnormal findings on diagnostic imaging of liver and biliary tract sheryl - Liver cell carcinoma sheryl - Abnormal coagulation profile sheryl - Hypotension, unspecified sheryl - Severe sepsis without septic shock sheryl - Anemia, unspecified sheryl - Hyperkalemia sheryl - Acute kidney failure, unspecified - ON CHRONIC sheryl - Pneumonia due to other specified bacteria - RIGHT LOWER LOBE sheryl - Pleural effusion, not elsewhere classified sheryl - Retention of urine, unspecified - PVR 400 CC sheryl Forms: - Medication Reconciliation Form sheryl - SBAR form sheryl Signatures: Dispatcher [employer] Bryan Jeff MD MD cha Hall, Patricia, RN RN [facility]kevin, Ivette Manrique RN RN mb9 Wesley Cary MD MD rt Margaret Hannah RN RN pf1 Cindy Cruz RN RN me1 Corrections: (The following items were deleted from the chart) 19:04 19:02 TO ICU sheryl sheryl 19:36 19:04 TO ICU sheryl sheryl 20:27 19:02 [facility] sheryl sheryl 20:27 19:36 TO ICU sheryl sheryl 20:40 20:27 TO ICU sheryl pf1
[2023-08-13 20:19] LABS: SARS-CoV-2 Antigen Rapid Res Negative (Negative)
[2023-08-13 21:03] VITALS: BP 112/63; TEMP 98; O2SAT 100
== END ==
LOC: ER 14:42
DX: K72.90 Hepatic failure, unspecified without coma (principal); R65.20 Severe sepsis without septic shock; C22.0 Liver cell carcinoma; I95.9 Hypotension, unspecified; R79.1 Abnormal coagulation profile; D64.9 Anemia, unspecified; E87.5 Hyperkalemia; J15.8 Pneumonia due to other specified bacteria; J91.8 Pleural effusion in other conditions classified elsewhere; I12.9 Hypertensive chronic kidney disease with stage 1 through stage 4 chronic kidney disease, or unspecified chronic kidney disease; N18.9 Chronic kidney disease, unspecified; N17.9 Acute kidney failure, unspecified; R33.9 Retention of urine, unspecified; Z85.46 Personal history of malignant neoplasm of prostate
CPT/HCPCS: 87040 ×2; 85025; 80048; 36415; 82140; 86900; 83735; 86850; 85610; 86901; 80076; 83605; 85730; 86920; 84484; 80053; 87804 ×2; 74176; 71045; 87811; J3430; J7613; J7644; C9113; J0692; P9047; J7050; J7040; J7030 ×2; 93005